=== PATIENT | female | born 1935 | race Caucasian/White ===

== ENCOUNTER 2016-12-01 12:34 | Inpatient (IN) | payer MEDICARE ==
[~2016-12-01] VITALS: Ht 160 cm; Wt 78.4 kg
[~2016-12-01 12:34] MED LIST: ACYC400T2 PO; ADV250INH IH; AMIO200T PO; APIX5TAB PO; AREDS VITAMIN PO; CHOL200047 PO; FERR325T20 PO; FLUO5DRO7 RIGHT_EYE; FURO40TA4 PO; IPRA3AMP IH; MONT10TA23 PO; NITR0.4T SL; PANT20TA2 PO; PARO20TA5 PO; POLY17PO6 PO; SIMV10TA4 PO; TIOT18CA3 INHALATION
[2016-12-01 12:57] VITALS: BP 113/67; PULSE 67; RESP 16; O2SAT 97
--- NOTE | 2016-12-01 14:02 | ED.REPORT ---
HPI-General Illness Date of Service Dec 01, 2016 ED Provider: Júnior Cheek MD Pt is an 81 y/o female anticoagulated on Eliquis w/ a hx of LLE DVT, ischemic cardiomyopathy, aortic valve replacement, CAD s/p CABG, CHF, COPD, hyperlipidemia, renal insufficiency, presenting to the ED c/o LLE swelling onset about 3 days ago. She c/o associated posterior calf pain, possible increased baseline SOB. Pt denies fever, chills, CP, injury. She had a scrape of the skin of the LLE previously with reportedly good healing. They report a history of previous LLE DVT 1 yr ago and was started on Eliquis of which the dose was halved since that time. PCP: Bal Nursing Notes Stated Complaint: WATER RETENTION/POSS CELLULITIS Chief Complaint: Extremity Trauma Nursing Notes Reviewed: Yes Allergies: Coded Allergies: Penicillins (Unverified Allergy, Intermediate, hives, 12/01/16) Scheduled Acyclovir (Acyclovir) 400 Mg Tablet 400 MG PO BID Amiodarone (Amiodarone) 200 Mg Tablet 200 MG PO DAILY Apixaban (Eliquis) 5 Mg Tablet 2.5 MG PO BID Bumetanide (Bumetanide) 1 Mg Tablet 2 MG PO BIDWM Buspirone (Buspirone) 5 Mg Tablet 5 MG PO BID Cholecalciferol (Vitamin D3) (Vitamin D3) 2,000 Unit Tablet 2,000 UNIT PO DAILY Ferrous Gluconate (Ferrous Gluconate) 324 Mg Tablet 324 MG PO BIDWM Fluorometholone (Fluorometholone) 5 Ml Drops.susp 1 DROP RIGHT_EYE BID Fluticasone/Salmeterol (Advair 250-50 Diskus) 60 Puff/Inh Disk 1 PUFF IH BID Ipratropium/Albuterol Sulfate (Iprat-Albut 0.5-3(2.5) mg/3 mL Inhalant Soln) 3 Ml Ampul.neb 3 ML IH QID Montelukast (Montelukast) 10 Mg Tablet 10 MG PO HS Pantoprazole DR (Pantoprazole DR) 20 Mg Tablet.dr 20 MG PO DAILYAC Paroxetine (Paroxetine) 20 Mg Tablet 20 MG PO HS Potassium Chloride (Potassium Chloride) 20 Meq Tab.er.prt 20 MEQ PO DAILY TAKE WITH FOOD Ropinirole (Ropinirole) 0.25 Mg Tablet 0.25-0.5 MG PO QPM Sennosides (Senna) 8.6 Mg Tablet 17.2 MG PO HS Simvastatin (Simvastatin) 10 Mg Tablet 10 MG PO HS Spironolactone (Spironolactone) 50 Mg Tablet 50 MG PO DAILY Tiotropium [place] (Spiriva) 18 Mcg Cap.w.dev 2 PUFFS IH DAILY Vit C/E/Zn/Coppr/Lutein/Zeaxan (Preservision Areds 2 Softgel) 1 Each Capsule 1 EACH PO BID Scheduled PRN Acetaminophen (Acetaminophen) 325 Mg Tablet 325 MG PO Q4H PRN PRN For Fever Carboxymethylcellulos/Glycerin (Refresh Optive Eye Drops) 15 Ml Drops 1 DROP BOTH_EYES Q2H PRN PRN DRY EYES Glycerin (Suppository) 1 Each Supp.rect 1 EACH RC DAILY PRN PRN HEMMORRHIDAL [place] Nitroglycerin SL (Nitrostat) 0.4 Mg Tab.subl 0.4 MG SL Q5MIN PRN PRN For Chest Pain Polyethylene Glycol 3350 (Miralax) 17 Gm Powd.pack 17 GM PO DAILY PRN PRN For Constipation diphenhydrAMINE HCl (Unisom Sleepmelts) 25 Mg Tab.rapdis 50 MG PO Q4H PRN PRN For Itching General Time Seen by MD: 13:56 Chief Complaint Other (extrem swelling) Hx Obtained From: Patient Arrived By: Walk-in Sudden in Onset?: No Onset Occurred: 3 days ago Symptom Duration: Since onset Location: : Leg left Quality: Painful Severity: Current: Moderate Severity: Maximum: Moderate Recent Healthcare: Previous diagnosis Similar Sx Previous: Yes Past Medical History Past Medical History Ischemic cardiomyopathy AVR (aortic valve replacement) CAD (coronary artery disease) S/P CABG x 1 Congestive heart failure - Last echo 07/23/2015 EF 23% LBBB (left bundle branch block) Leg edema Orthostatic hypotension COPD Hyperlipidemia Lower extremity length discrepancy Renal insufficiency Corneal abrasion Depression with anxiety Insomnia Osteoarthritis, s/p rt. knee replacement Osteopenia Past Surgical History Pacemaker in October Right knee replacement Reports: CABG Smoking History Former Smoker Social History Other Social History: Local resident Ambulatory Status Independent Review of Systems Full Review of Systems Constitutional: Denies: Chills, Fever Respiratory: Reports: Shortness of breath, Denies: Non-productive cough Cardiovascular: Denies: Chest pain, Palpitations GI: Denies: Abdominal pain, Nausea, Vomiting Musculoskeletal: Reports: Extremity pain, Extremity swelling Physical Exam Vital Signs Vital Signs Date Time Temp Pulse Resp B/P Pulse Ox O2 Delivery O2 Flow Rate FiO2 12/01/16 12:57 36.2 67 16 113/67 97 Room Air Initial VS: Reviewed Head / Eyes: Atraumatic, Normocephalic, PERRL ENT: Mucous membranes moist, Conjunctiva normal, No scleral icterus Neck: Supple, Full range of motion Abdomen / GI: Soft, Non-tender Neurologic: Alert, Oriented, Nonfocal Psychiatric: Mood/affect normal, Behavior normal, Normal thought content Respiratory / Chest: Atraumatic, No respiratory distress, No retractions, No stridor, No chest tenderness, No chest wall deformity, No crepitus Scattered wheezes Cardiovascular: Heart rate NL, Regular rhythm, No gallop, No rubs, Cap refill not delayed, Peripheral circulation NL Hollow systolic murmur upper right sternal border Lower Extremity / Pelvis / MS: Atraumatic, No deformity, Neurologic intact, Vascular intact, No compartment syndrome LLE up to the kene is massively swollen, warm, mildly erythematous, tender to palpation of posterior calf, foot is warm. No cords Palpable DP and PT pulses RLE normal Skin: Atraumatic, Intact Color / Condition: Positive: Rash present Interpretation & Diagnostics Lab Results Interpretation Result Diagram: 12/01/16 1515 12/01/16 1515 Test 12/01/16 15:15 White Blood Count 8.1th/mm3 (3.8-10.1) Red Blood Count 3.61mil/mm3 (3.90-5.20) Hemoglobin 10.9g/dL (12.0-15.6) Hematocrit 35.0% (35.0-46.0) Mean Corpuscular Volume 97.0fL (81-100) Mean Corpuscular Hemoglobin 30.2pg (27.0-35.0) Mean Corpuscular Hemoglobin Concent 31.1% (32.0-37.0) Red Cell Distribution Width 17.9% (12.3-15.4) Platelet Count 154bil/L (150-400) Neutrophils (%) (Auto) 80.4% (40-74) Lymphocytes (%) (Auto) 7.5% (14-46) Monocytes (%) (Auto) 10.9% (4-12) Eosinophils (%) (Auto) 1.0% (0-5) Basophils (%) (Auto) 0.1% (0-3) Sodium Level 136mEq/L (134-144) Potassium Level 4.5mEq/L (3.5-5.2) Chloride Level 95mEq/L (97-108) Carbon Dioxide Level 24mmol/L (18-29) Blood Urea Nitrogen 66mg/dL (8-27) Creatinine 2.29mg/dL (0.57-1.00) Estimat Glomerular Filtration Rate 29mL/min (>59) Glucose Level 104mg/dL (60-99) Calcium Level 9.2mg/dL (8.5-10.1) Total Bilirubin 0.6mg/dL (0.0-1.2) Aspartate Amino Transf (AST/SGOT) 23U/L (0-50) Alanine Aminotransferase (ALT/SGPT) 23U/L (0-32) Alkaline Phosphatase 102U/L (25-165) Troponin T 0.033ug/L (0.0-0.011) Total Protein 7.2g/dL (6.4-8.4) Albumin 4.6g/dL (3.4-5.0) Hold Will Top Tube Received (Received) ECG Interpretation ECG Interpretation: Atrial-sensed ventricular-paced rhythm rate 68 Time: 15:26 Interpreted by: ED physician Normal ECG Interpretation: No acute ischemic changes X-Ray Chest Interpretation Chest Xray Interpretation: IMPRESSION: Chronic CHF pattern, prior heart surgery, no definite acute disease. It is conceivable that a small degree of acute CHF exacerbation could be superimposed. Dictated by: Eduardo Galvez M.D. on 12/01/2016 at 16:54 Approved by: Eduardo Galvez M.D. on 12/01/2016 at 16:55 View: Portable, 1 view Interpretation / Wet Read by: Interpret - Radiologist US Focused Lower Ext Venous IMPRESSION: No DVT found. Elevated phasicity of the venous flow can be seen in the setting of restriction of antegrade flow through the right heart. Dictated by: Eduardo Galvez M.D. on 12/01/2016 at 15:56 Approved by: Eduardo Galvez M.D. on 12/01/2016 at 16:00 Exam Performed by: Allied health pract Exam Type: Diagnostic Exam Interpreted by: Radiologist Indication: Leg pain left, Leg swelling left, Leg erythema left Re-Eval/Medical Decision Med Decision/Clinical Course 79-year-old female with left lower extremity swelling. DVT is ruled out by imaging. 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 She does not appear to be systemically infected, does however have a increase from baseline in her serum creatinine and has an elevated troponin. We cautiously provided a saline bolus and Rocephin 2 g IV. She will be admitted to the hospitalist service with nephrology consulting. Consultation : Referral / Consult Name: Soumya Baker Consulted With: Nephrology Optical Instrument Assembler: Will see patient Counseled Regarding: Diagnosis, Lab results, Need for admission Discharge & Departure Primary Impression: Cellulitis of left lower leg Additional Impression: Acute kidney injury Disposition: ADMITTED TO HOSPITAL Discharge Condition All VS Reviewed: Yes Condition: Stable Referrals: Ronny Contreras MD (PCP) [place] Attestation Portions of this note were transcribed by Remington Resendiz. I, Dr. Cheek personally performed the history, physical exam and medical decision-making; I reviewed and confirmed the accuracy of the information in the transcribed note. Signed by Ahsan Steele, 12/01/16 - 0499 copies to: Ronny Contreras MD, Donald L MD Dec 01, 2016 14:02 REMINGTON RESENDIZ Dec 01, 2016 15:01
[2016-12-01] MEDS ORDERED: HYDROcodone-APAP 5-325 mg Tablet PO ONE (15:05)
[2016-12-01 15:27] LABS: BASOPHILS % (AUTO) 0.1 % (0-3); MONOCYTES % (AUTO) 10.9 % (4-12); Mean Corpuscular Hemoglobin 30.2 pg (27.0-35.0); NEUTROPHILS % (AUTO) 80.4 % (40-74); Platelet Count 154 bil/L (150-400)
[2016-12-01 15:50] LABS: TROPONIN T 0.033 ug/L (0.0-0.011)
--- NOTE | 2016-12-01 16:01 | DRSVH ---
PROCEDURE: US VEINOUS LEG DUPLEX UNILATERAL, LEFT INDICATIONS: L leg swelling TECHNIQUE: Real-time imaging, as well as color and pulse Doppler interrogation, were performed of the lower extr emity deep veins from the inguinal ligament to the popliteal fossa. COMPARISON: None. FINDINGS: The deep veins are normally compressible, and free of intraluminal thrombus. Color and pu lse Doppler demonstrate phasic intraluminal flow, with phasicity that is greater than often is seen, in a pattern that may reflect some degree of right-sided cardiac insufficiency. There is normal augm entation response to distal compression maneuver. IMPRESSION: No DVT found. Elevated phasicity of the venous flow can be seen in the setting of restri ction of antegrade flow through the right heart. Dictated by: Eduardo Galvez M.D. on 12/01/2016 at 15:56 Approved by: Eduardo Galvez M.D. on 12/01/2016 at 16:00
[2016-12-01] MEDS ORDERED: POTA20LI2 PO (16:57)
[2016-12-01] MEDS ORDERED: BUME1TAB4 PO (16:57)
[2016-12-01] MEDS ORDERED: POLY17PO6 PO (16:57)
[2016-12-01] MEDS ORDERED: CARB15DR2 BOTH_EYES (16:57)
[2016-12-01] MEDS ORDERED: DIPH-36 PO (16:57)
[2016-12-01] MEDS ORDERED: GLYC1SUP77 RC (16:57)
[2016-12-01] MEDS ORDERED: AMIO200T PO (16:57)
[2016-12-01] MEDS ORDERED: BUSP5TAB3 PO (16:57)
[2016-12-01] MEDS ORDERED: FERR324T5 PO (16:57)
--- NOTE | 2016-12-01 16:57 | DRSVH ---
PROCEDURE: X-RAY CHEST ONE VIEW, PORTABLE ([id number]) INDICATIONS: dyspnea TECHNIQUE: One view of the chest was acquired. COMPARISON: [facility], CR, XR CHEST 2VW, 07/29/2016, 10:31. [facility], CR , XR CHEST 1VW (PORTABLE), 07/26/2016, 16:43. FINDINGS: Surgical changes and devices: Pacemaking device and leads, sternotomy wires, presumed prior CABG, all appear stable over time. . Lungs and pleura: No pleural effusions or pneumothorax. Lungs are abnormal, with chronic interstiti al prominence and no definite CHF. Mediastinum: Mediastinal contours appear normal. 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 Bones and chest wall: No suspicious bony lesions. Overlying soft tissues appear unremarkable. IMPRESSION: Chronic CHF pattern, prior heart surgery, no definite acute disease. It is conceivable t hat a small degree of acute CHF exacerbation could be superimposed. Dictated by: Eduardo Galvez M.D. on 12/01/2016 at 16:54 Approved by: Eduardo Galvez M.D. on 12/01/2016 at 16:55
[2016-12-01] MEDS ORDERED: SPIR50TA2 PO (17:02)
[2016-12-01] MEDS ORDERED: ROPI0.252 PO (17:02)
[2016-12-01] MEDS ORDERED: TIOT18CA3 IH (17:02)
[2016-12-01] MEDS ORDERED: SENN-133 PO (17:02)
[2016-12-01] MEDS ORDERED: TRIA15OI9 TOP (17:02)
[2016-12-01] MEDS ORDERED: KEN25CR EXT (17:02)
[2016-12-01] MEDS ORDERED: ACET325T51 PO (17:02)
[2016-12-01] MEDS ORDERED: CHOL200025 PO (17:02)
[2016-12-01] MEDS ORDERED: VIT1CAPS46 PO (17:14)
[2016-12-01] MEDS ORDERED: POTA20TA16 PO (17:15)
[2016-12-01] MEDS ORDERED: 0.9% Sodium Chloride 500 ML IV ONE (17:45)
[2016-12-01] MEDS ORDERED: cefTRIAXone Inj 2,000 MG in Dextrose 5% Minibag Plus 50 ML IV ONE (17:45)
--- NOTE | 2016-12-01 18:27 | PCM.HPMED ---
Subjective Date of Service Dec 01, 2016 Primary Provider: Admitting Physician: Primary Care Physician: Ronny Contreras MD Attending Physician: Chief Complaint: Right extremity pain and swelling History of Present Illness: Pt is an 81 y/o female anticoagulated on Eliquis w/ a hx of LLE DVT, ischemic cardiomyopathy, aortic valve replacement, CAD s/p CABG, CHF, COPD, hyperlipidemia, renal insufficiency, presenting to the ED c/o LLE swelling onset about 3 days ago. Patient also complaining of calf pain . No chest pain, no shortness of breath . She has a history of previous lower extremity DVT and chronically on Eliquis . Patient is found to have extensive lower extremity cellulitis from ankle to below the knee. Ultrasound showed no DVT. Review of Systems: Review of systems is pertinent in the lower extremity pain and swelling, otherwise a comprehensive review 10 points is negative Allergies Coded Allergies: Penicillins (Unverified Allergy, Intermediate, hives, 12/01/16) Home Medications Scheduled Acyclovir (Acyclovir) 400 Mg Tablet 400 MG PO BID Amiodarone (Amiodarone) 200 Mg Tablet 200 MG PO DAILY Apixaban (Eliquis) 5 Mg Tablet 2.5 MG PO BID Bumetanide (Bumetanide) 1 Mg Tablet 2 MG PO BIDWM Buspirone (Buspirone) 5 Mg Tablet 5 MG PO BID Cholecalciferol (Vitamin D3) (Vitamin D3) 2,000 Unit Tablet 2,000 UNIT PO DAILY Ferrous Gluconate (Ferrous Gluconate) 324 Mg Tablet 324 MG PO BIDWM Fluorometholone (Fluorometholone) 5 Ml Drops.susp 1 DROP RIGHT_EYE BID Fluticasone/Salmeterol (Advair 250-50 Diskus) 60 Puff/Inh Disk 1 PUFF IH BID Ipratropium/Albuterol Sulfate (Iprat-Albut 0.5-3(2.5) mg/3 mL Inhalant Soln) 3 Ml Ampul.neb 3 ML IH QID Montelukast (Montelukast) 10 Mg Tablet 10 MG PO HS Pantoprazole DR (Pantoprazole DR) 20 Mg Tablet.dr 20 MG PO DAILYAC Paroxetine (Paroxetine) 20 Mg Tablet 20 MG PO HS Potassium Chloride (Potassium Chloride) 20 Meq Tab.er.prt 20 MEQ PO DAILY TAKE WITH FOOD Ropinirole (Ropinirole) 0.25 Mg Tablet 0.25-0.5 MG PO QPM Sennosides (Senna) 8.6 Mg Tablet 17.2 MG PO HS Simvastatin (Simvastatin) 10 Mg Tablet 10 MG PO HS Spironolactone (Spironolactone) 50 Mg Tablet 50 MG PO DAILY Tiotropium [place] (Spiriva) 18 Mcg Cap.w.dev 2 PUFFS IH DAILY Vit C/E/Zn/Coppr/Lutein/Zeaxan (Preservision Areds 2 Softgel) 1 Each Capsule 1 EACH PO BID Scheduled PRN Acetaminophen (Acetaminophen) 325 Mg Tablet 325 MG PO Q4H PRN PRN For Fever Carboxymethylcellulos/Glycerin (Refresh Optive Eye Drops) 15 Ml Drops 1 DROP BOTH_EYES Q2H PRN PRN DRY EYES Glycerin (Suppository) 1 Each Supp.rect 1 EACH RC DAILY PRN PRN HEMMORRHIDAL TX Nitroglycerin SL (Nitrostat) 0.4 Mg Tab.subl 0.4 MG SL Q5MIN PRN PRN For Chest Pain Polyethylene Glycol 3350 (Miralax) 17 Gm Powd.pack 17 GM PO DAILY PRN PRN For Constipation diphenhydrAMINE HCl (Unisom Sleepmelts) 25 Mg Tab.rapdis 50 MG PO Q4H PRN PRN For Itching PMH Ischemic cardiomyopathy AVR (aortic valve replacement) CAD (coronary artery disease) S/P CABG x 1 Congestive heart failure - Last echo 07/23/2015 EF 23% LBBB (left bundle branch block) Leg edema Orthostatic hypotension COPD Hyperlipidemia Lower extremity length discrepancy Renal insufficiency Corneal abrasion Depression with anxiety Insomnia Osteoarthritis, s/p rt. knee replacement Osteopenia Surgical History Pacemaker in October Right knee replacement Reports: CABG Family History Family history reviewed and is non contributory to the present illness Social History Hx Alcohol Use: No Hx Substance Use: No Smoking Status: Former Smoker Living Arrangement: with Family Exam Vital Signs Vital Sign - Last Date Time Temp Pulse Resp B/P Pulse Ox O2 Delivery O2 Flow Rate FiO2 12/01/16 12:57 36.2 67 16 113/67 97 Room Air Exam General/constitutional: Elderly female but comfortably, with yellowish, not in distress HEENT: Atraumatic, Normocephalic, PERRL, sclerae anicteric Mouth: Moist oropharyngeal mucosa Neck: Supple, Full range of motion. Trachea is midline, no JVD Chest: No chest tenderness, No chest wall deformities Lungs: Clear bilaterally to auscultation, no wheezing Cardiovascular: Heart rate NL, Regular rhythm, No gallop, No rubs, Cap refill not delayed, Peripheral circulation Abdomen / GI: Soft, Non-tender, bowel sounds audible quadrant. No palpable mass Lower Extremity: Right lower extremity with extending erythema from ankle to below the knee. Warmth and tender on palpation Neurologic: Alert, Oriented, grossly intact Psychiatric: Mood/affect normal, Behavior normal, Normal thought content Lab and Diagnostics Result Diagram: 12/01/16 1515 12/01/16 1515 X-Rays, CTs and MRIs Checks x-ray reviewed : Chronic CHF pattern, prior heart surgery, no definite acute disease. It is conceivable that a small degree of acute CHF exacerbation could be superimposed Extremity ultrasound report reviewed : No DVT Assessment & Plan 1. LE Cellulitis 2. Acute on chronic renal failure Chronic medical problems Ischemic cardiomyopathy AVR (aortic valve replacement) CAD (coronary artery disease) S/P CABG x 1 Congestive heart failure - Last echo 07/23/2015 EF 23% LBBB (left bundle branch block) Leg edema Orthostatic hypotension COPD Hyperlipidemia Lower extremity length discrepancy Renal insufficiency Corneal abrasion Depression with anxiety Insomnia Osteoarthritis, s/p rt. knee replacement Osteopenia Admit for cellulitis and acute renal failure . Start clindamycin 600 mg IV Q6H . US shows no DVT Hold Spironolactone and bumetanide . Monitor renal function and electrolytes Consult nephrology . Home medications reviewed and reconciled . BMP in am On Eliquis for h/o DVT. Resuscitation Status: CPR: Attempt Resuscitation Time spent 75 minutes Shun Leggett MD Dec 01, 2016 18:27
[2016-12-01] MEDS ORDERED: Polyethylene Glycol (PEG) 17 Gm Powder PO PRN (18:40)
[2016-12-01 18:50] VITALS: BP 114/70; PULSE 69; RESP 16; O2SAT 96
--- NOTE | 2016-12-01 19:03 | NUR ---
Admission Pt from ED in w/c at 1645, able to transfer self to bed. Report from Lisa Schaffer RN. Pt's left knee reddened and edematous, borders not marked. Pt has no c/o pain at this time, medication given in ED. IV antibiotics and fluids connected to left AC IV immediately. ZORA RAMSEY, A&O x 3. Pt oriented to room and notified she will get a new RN shortly because of shift change.
[2016-12-01 20:26] VITALS: PULSE 64; RESP 16; O2SAT 96
[2016-12-01] MEDS: Albuterol-Ipratropium 3 mL Inhalation Solution NEB SCH (20:26)
[2016-12-01] MEDS: [UNRECOGNIZED DRUG - OTHER] RIGHT_EYE SCH (20:30)
[2016-12-01] MEDS: Potassium Chloride 20 mEq SR Tablet PO SCH (22:41)
[2016-12-01] MEDS: PARoxetine 20 mg Tablet PO SCH (22:41)
[2016-12-01] MEDS: Clindamycin Inj 600 MG in IV Premix 1 EACH IV SCH (22:42)
[2016-12-01] MEDS: Acyclovir 400 mg Tablet PO SCH (22:43)
[2016-12-01] MEDS: Fluticasone-Salmererol 250-50 Inhaler INHALATION SCH (22:44)
[2016-12-02] VITALS (9 sets, daily range): BP systolic 97–126; BP diastolic 58–68; PULSE 62–71; RESP 16–20; O2SAT 93–99
[2016-12-02] MEDS: Clindamycin Inj 600 MG in IV Premix 1 EACH IV SCH ×3 (04:03→20:07)
--- NOTE | 2016-12-02 05:27 | NUR ---
activity Pt remained in room for the shift, up to bathroom with SBA. Pt is pleasant, and cooperative, alert and oriented, no complaints of pain or discomfort. Uses call light appropriately, with continue to monitor.
[2016-12-02 07:23] LABS: BASOPHILS % (AUTO) 0.2 % (0-3); EOSINOPHILS % (AUTO) 1.4 % (0-5); MONOCYTES % (AUTO) 13.4 % (4-12); Mean Corpuscular Volume 97.6 fL (81-100); NEUTROPHILS % (AUTO) 78.7 % (40-74); Platelet Count 138 bil/L (150-400)
[2016-12-02] MEDS: Albuterol-Ipratropium 3 mL Inhalation Solution NEB SCH ×4 (08:28→19:59)
[2016-12-02] MEDS: [UNRECOGNIZED DRUG - OTHER] RIGHT_EYE SCH ×2 (08:30→20:30)
[2016-12-02] MEDS: Fluticasone-Salmererol 250-50 Inhaler INHALATION SCH ×2 (09:04→20:10)
[2016-12-02] MEDS: Pantoprazole 20 mg ER24 Tablet PO SCH (09:04)
[2016-12-02] MEDS: Acyclovir 400 mg Tablet PO SCH ×2 (09:04→20:09)
[2016-12-02] MEDS: Potassium Chloride 20 mEq SR Tablet PO SCH (09:05)
--- NOTE | 2016-12-02 12:27 | CONS ---
[address] [address] CONSULTATION REPORT PATIENT: YVETTE WATKINS : 1935 MR#: [id number] ADMIT: 12/01/2016 JOB ID: [id number] DATE OF SERVICE: 12/02/2016 NEPHROLOGY CONSULTATION: REQUESTING PHYSICIAN: Dr. Ronny Contreras REASON FOR CONSULTATION: Management of abnormal kidney function. COMPLAINT: Left lower extremity swelling and redness. HISTORY OF PRESENT ILLNESS: This is a very pleasant 81-year-old lady who is well known to the renal service, who came to the hospital with a complaint of left lower extremity swelling and tenderness. The patient does have history of chronic kidney disease stage 4. Her baseline serum creatinines have ranged between 1.8-2.0. The patient was recently seen by me approximately three weeks ago. We switched Lasix to Bumex 2 mg twice a day given history of unresponsive to long-term use of Lasix. The patient reported that she responded well with the new diuretic. She has lost weight and her lower extremity swelling has gone down. However, over the past four days her left leg became swollen, red, and very painful. The patient came to the hospital yesterday for further investigation. She was found to have cellulitis and started on IV antibiotics, IV ceftriaxone. DVT was ruled out. The patient has no fever, no chills. No chest pain, no shortness of breath. No diarrhea, no nausea or vomiting. Her initial BUN and creatinine were 66 and 2.29, respectively. Her BUN and creatinine today came down to 57 and 2.16. PAST MEDICAL HISTORY: 1. Chronic kidney disease stage 4. 2. Coronary artery disease status post CABG. 3. COPD. 4. CHF. 5. Dyslipidemia. 6. Aortic valve replacement. 7. Ischemic cardiomyopathy. 8. Lower extremity deep venous thrombosis. 9. Osteoarthritis, status post right knee replacement. 10. Depression. 11. Aortic stenosis status post aortic valve replacement. 12. Paroxysmal atrial fibrillation. PAST SURGICAL HISTORY: 1. Pacemaker placement. 2. Right knee replacement. 3. Status post CABG. FAMILY HISTORY: Noncontributory. SOCIAL HISTORY: She is a former smoker. ALLERGIES: PENICILLIN. MEDICATIONS: Reviewed. REVIEW OF SYSTEMS: Constitutional: No fever, no chills. HEENT: No headaches. No blurred vision. Cardiovascular: No chest pain or shortness of breath. Pulmonary: No cough. No hemoptysis. GI: No nausea or vomiting. : No dysuria. No hematuria. Skin and musculoskeletal: As per HPI. Hematology: No active bleeding. No bruises. Neuro: No neurological deficit. PHYSICAL EXAMINATION: Vitals: Temperature 36.1, pulse 71, respiratory 16, blood pressure 126/67, O2 sat 96% on room air. General appearance: Awake, alert, oriented x3. No acute distress. HEENT: No pallor. No icteric sclerae. Atraumatic. Moist mucous membranes. PERRLA. Neck: Positive for JVD. No lymphadenopathy. No thyroid enlargement. Heart: Regular rhythm. Normal S1, S2. Systolic murmur noted. Lungs: Decreased breath sound at bases. No wheezing. No rhonchi. Abdomen: Soft, obese. Active bowel sounds. No hepatosplenomegaly. Extremities: No edema on the right lower extremity. Positive 1+ pitting edema. The area of the redness on the left lower extremity is tender to touch, warm. IMAGING: Chest x-ray showed chronic CHF pattern, prior heart surgery. No definite acute disease. Lower extremity Doppler of the left leg showed no acute evidence of a DVT. ASSESSMENT: 1. Skin and soft tissue infection of the left lower extremity. 2. Acute kidney injury on chronic kidney disease secondary to over-diuresis and ongoing infection, acute tubular necrosis. 3. 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 4. Ischemic cardiomyopathy. 5. Coronary artery disease status post coronary artery bypass grafting. 6. Severe aortic stenosis status post aortic valve replacement. 7. Paroxysmal atrial fibrillation. 8. COPD. PLAN: 1. I agree with the primary team to continue on the current IV antibiotics. I will hold diuretics for now. I will reassess her volume status on a daily basis. We will resume diuretics once she is more euvolemic. 2. Avoid nephrotoxins. 3. Repeat CBC and renal panel in the morning. 4. Check anemia workup. 5. Repeat the UA. Thank you for the consultation. We will monitor along with you. CHANEL
[2016-12-02 13:04] LABS: Magnesium 2.6 mg/dL (1.6-2.6); Phosphorus 4.4 mg/dL (2.5-4.9)
--- NOTE | 2016-12-02 13:43 | PCM.PNMED ---
Subjective Date of Service Dec 02, 2016 Subjective Left leg swelling, pain and redness much improved. Afebrile. Exam Vital Signs Vital Sign - Last Date Time Temp Pulse Resp B/P Pulse Ox O2 Delivery O2 Flow Rate FiO2 12/02/16 13:35 36.6 65 16 97/61 93 Room Air Intake and Output 12/01/16 12/01/16 12/02/16 Cumulative From/Thru 15:00 23:00 07:00 12/01/16 12:57 - 12/02/16 06:30 Intake Total 1192 ml 1192 ml Balance 1192 ml 1192 ml IV Total 1192 ml 1192 ml Exam General/constitutional: Elderly female but comfortably, with yellowish, not in distress HEENT: Atraumatic, Normocephalic, PERRL, sclerae anicteric Mouth: Moist oropharyngeal mucosa Neck: Supple, Full range of motion. Trachea is midline, no JVD Chest: No chest tenderness, No chest wall deformities Lungs: Clear bilaterally to auscultation, no wheezing Cardiovascular: Heart rate NL, Regular rhythm, No gallop, No rubs, Cap refill not delayed, Peripheral circulation Abdomen / GI: Soft, Non-tender, bowel sounds audible quadrant. No palpable mass Lower Extremity: Right lower extremity with extending erythema from ankle to below the knee. Warmth and tender on palpation . Much improved today. Area of erythema much less from marked order Neurologic: Alert, Oriented, grossly intact Psychiatric: Mood/affect normal, Behavior normal, Normal thought content IVs and Medications Medications Reviewed: Medications were reviewed in detail Lab and Diagnostics Result Diagram: 12/02/16 0650 12/02/16 0650 X-Rays, CTs and MRIs Checks x-ray reviewed : Chronic CHF pattern, prior heart surgery, no definite acute disease. It is conceivable that a small degree of acute CHF exacerbation could be superimposed PROCEDURE: US VEINOUS LEG DUPLEX UNILATERAL, LEFT INDICATIONS: L leg swelling TECHNIQUE: Real-time imaging, as well as color and pulse Doppler interrogation, were performed of the lower extremity deep veins from the inguinal ligament to the popliteal fossa. COMPARISON: None. FINDINGS: The deep veins are normally compressible, and free of intraluminal thrombus. Color and pulse Doppler demonstrate phasic intraluminal flow, with phasicity that is greater than often is seen, in a pattern that may reflect some degree of right-sided cardiac insufficiency. There is normal augmentation response to distal compression maneuver. IMPRESSION: No DVT found. Elevated phasicity of the venous flow can be seen in the setting of restriction of antegrade flow through the right heart. Dictated by: Eduardo Galvez M.D. on 12/01/2016 at 15:56 Assessment & Plan #. LLE Cellulitis ,acute,poa -Continue clindamycin 600 mg IV Q6H . -US shows no DVT, continue Eliquis for h/o DVT #. Acute on chronic renal failure -Hold Spironolactone and bumetanide . Monitor renal function and electrolytes -Consulted nephrology #Ischemic cardiomyopathy/Congestive heart failure - Last echo 07/23/2015 EF 23% -Diuresis on hold due to KAYLA -Continue amiodarone Chronic medical problems #History of AVR (aortic valve replacement) #CAD (coronary artery disease) S/P CABG x 1 #COPD -Continue Advair, DuoNeb #Hyperlipidemia -c/w simvastatin #Depression with anxiety #Insomnia disposition: Possible discharge tomorrow on oral antibiotics if continues to improve. Resuscitation Status: CPR: Attempt Resuscitation Malik Pruitt MD Dec 02, 2016 13:42 Admit for cellulitis and acute renal failure . Start clindamycin 600 mg IV Q6H . US shows no DVT Hold Spironolactone and bumetanide . Monitor renal function and electrolytes Consult nephrology . Home medications reviewed and reconciled . BMP in am On Eliquis for h/o DVT. Resuscitation Status: CPR: Attempt Resuscitation Malik Pruitt MD Dec 02, 2016 13:42
[2016-12-02] MEDS ORDERED: diphenhydrAMINE 25 mg Capsule PO PRN (14:00)
--- NOTE | 2016-12-02 15:58 | NUR ---
Social Work-initial assessment: Data:See initial assessment. Pt is a 81 y/o female who was admitted on 12/01/16 for left leg cellulitis per H&P. Pt's insurance is [employer] and PCP is Ronny Contreras MD.. EMR Reviewed. SW spoke with pt at bedside to discuss discharge planning, SW role explained. Pt is alert and oriented x3. Pt resides at [facility] where she remains independent with ADLS. Pt has had [facility] and has been to [facility]. 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 Per RN notes, pt has been up independent in the room. Pt's daughter to provide transport home. Pt denies any needs for HH and states she has enough help at home.. SW provided phone number and plan. SW will continue to follow. Assessment:Pt who is independent at baseline. Plan:Pt to discharge home when medically stable. No anticipated discharge needs. SW will continue to follow if needs arise. PHIL Berrios Addendum: 12/02/16 at 1601 by BILL ALCARAZ Amended: Links added.
[2016-12-02 16:57] LABS: APPEARANCE,URINE HAZY (CLEAR,HAZY); COLOR,URINE YELLOW (YELLOW); OCCULT BLOOD,URINE NEGATIVE (NEGATIVE); PH,URINE 5.5 (5.0-8.0); UROBILINOGEN,URINE NORMAL (NORMAL); YEAST,URINE FEW (NONE SEEN)
[2016-12-02] MEDS: PARoxetine 20 mg Tablet PO SCH (20:09)
[2016-12-02] MEDS: BusPIRone 15 mg Dividose Tablet PO SCH (20:10)
[2016-12-02] MEDS: Artificial Tears 15 mL Ophthalmic Solution BOTH_EYES PRN (20:10)
[2016-12-02] MEDS: [UNRECOGNIZED DRUG - OTHER] PO SCH (20:30)
[2016-12-03] VITALS (8 sets, daily range): BP systolic 100–110; BP diastolic 60–64; PULSE 66–93; RESP 16–24; O2SAT 94–99
--- NOTE | 2016-12-03 03:41 | NUR ---
Activity Patient comfortable through out evening, denies CP, abdominal discomfort, and general pain. Main concern has been whether leg will return to original size and color. Will continue to monitor for pain.
[2016-12-03] MEDS: Clindamycin Inj 600 MG in IV Premix 1 EACH IV SCH ×3 (04:29→21:18)
[2016-12-03 07:20] LABS: BASOPHILS % (AUTO) 0.1 % (0-3); EOSINOPHILS % (AUTO) 0.8 % (0-5); MONOCYTES % (AUTO) 14.3 % (4-12); Mean Corpuscular Hemoglobin 31.1 pg (27.0-35.0); Mean Corpuscular Volume 97.8 fL (81-100); NEUTROPHILS % (AUTO) 78.1 % (40-74); Platelet Count 130 bil/L (150-400)
[2016-12-03] MEDS: Albuterol-Ipratropium 3 mL Inhalation Solution NEB SCH ×4 (07:38→20:08)
[2016-12-03 08:24] LABS: Magnesium 2.6 mg/dL (1.6-2.6); Phosphorus 4.2 mg/dL (2.5-4.9); Unsaturated Iron Binding 235.1 ug/dL
[2016-12-03] MEDS: [UNRECOGNIZED DRUG - OTHER] RIGHT_EYE SCH ×2 (08:30→20:30)
[2016-12-03] MEDS: [UNRECOGNIZED DRUG - OTHER] PO SCH ×2 (08:30→20:30)
[2016-12-03] MEDS: Pantoprazole 20 mg ER24 Tablet PO SCH (10:27)
[2016-12-03] MEDS: Fluticasone-Salmererol 250-50 Inhaler INHALATION SCH ×2 (10:28→21:18)
[2016-12-03] MEDS: BusPIRone 15 mg Dividose Tablet PO SCH ×2 (10:28→21:19)
[2016-12-03] MEDS: Potassium Chloride 20 mEq SR Tablet PO SCH (10:29)
[2016-12-03] MEDS: Acyclovir 400 mg Tablet PO SCH ×2 (10:29→21:20)
--- NOTE | 2016-12-03 11:43 | PCM.PNNEPH ---
Subjective Date of Service Dec 03, 2016 Subjective There was no acute issues overnight. The swelling of the left lower extremity has improved. Patient has no fever no chills overnight. Exam Vital Signs Vital Sign - Last Date Time Temp Pulse Resp B/P Pulse Ox O2 Delivery O2 Flow Rate FiO2 12/03/16 07:39 66 18 98 Room Air 12/03/16 04:36 36.6 110/64 2.00 Intake and Output 12/02/16 12/02/16 12/03/16 Cumulative From/Thru 15:00 23:00 07:00 12/01/16 12:57 - 12/03/16 05:59 Intake Total 600 ml 1318 ml 665 ml 3775 ml Output Total 425 ml 500 ml 450 ml 1375 ml Balance 175 ml 818 ml 215 ml 2400 ml Intake Oral 600 ml 1318 ml 400 ml 2318 ml IV Total 265 ml 1457 ml Output Urine Total 425 ml 500 ml 450 ml 1375 ml # Voids 3 2 5 # Bowel Movements 0 1 1 2 Exam General appearance: Awake, alert, oriented x3. No acute distress. HEENT: No pallor. No icteric sclerae. Atraumatic. Moist mucous membranes. PERRLA. Neck: Positive for JVD. No lymphadenopathy. No thyroid enlargement. Heart: Regular rhythm. Normal S1, S2. Systolic murmur noted. Lungs: Decreased breath sound at bases. No wheezing. No rhonchi. Abdomen: Soft, obese. Active bowel sounds. No hepatosplenomegaly. Extremities: No edema on the right lower extremity. Positive 1+ pitting edema. The area of the redness on the left lower extremity is tender to touch, warmth. Lab and Diagnostics Result Diagram: 12/03/16 0653 12/03/16 0653 X-Rays, CTs and MRIs Checks x-ray reviewed : Chronic CHF pattern, prior heart surgery, no definite acute disease. It is conceivable that a small degree of acute CHF exacerbation could be superimposed PROCEDURE: US VEINOUS LEG DUPLEX UNILATERAL, LEFT INDICATIONS: L leg swelling TECHNIQUE: Real-time imaging, as well as color and pulse Doppler interrogation, were performed of the lower extremity deep veins from the inguinal ligament to the popliteal fossa. COMPARISON: None. FINDINGS: The deep veins are normally compressible, and free of intraluminal thrombus. Color and pulse Doppler demonstrate phasic intraluminal flow, with phasicity that is greater than often is seen, in a pattern that may reflect some degree of right-sided cardiac insufficiency. There is normal augmentation response to distal compression maneuver. IMPRESSION: No DVT found. Elevated phasicity of the venous flow can be seen in the setting of restriction of antegrade flow through the right heart. Dictated by: Eduardo Galvez M.D. on 12/01/2016 at 15:56 Plan Impression 1. Skin and soft tissue infection of the left lower extremity. 2. Acute kidney injury on chronic kidney disease secondary to over-diuresis and ongoing infection, acute tubular necrosis. 3. 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 4. Ischemic cardiomyopathy. 5. Coronary artery disease status post coronary artery bypass grafting. 6. Severe aortic stenosis status post aortic valve replacement. 7. Paroxysmal atrial fibrillation. 8. COPD. Plan Resume Bumex 2 mg once a day. Continue IV antibiotics. Avoid nephrotoxins. Fabio Ortega MD Dec 03, 2016 11:43
--- NOTE | 2016-12-03 13:08 | NUR ---
Social Work- Readiness for Discharge Data: EMR reviewed. Pt is on day 2 of hospitalization for left leg cellulitis per H&P. Pt is not medically stable, anticipate discharge in 1-2 days. Pt continues IV abx. Pt to discharge to [facility] where she remains independent at base. No anticipated discharge needs. SW will continue to follow. Assessment: Pt who is independent at base. Plan: Pt to discharge home. No anticipated discharge needs. SW will continue to follow. PHIL Peter
[2016-12-03] MEDS ORDERED: Albuterol-Ipratropium 3 mL Inhalation Solution NEB PRN (13:50)
[2016-12-03] MEDS ORDERED: Albuterol 2.5 mg/3 mL Inhalation Solution NEB ONE (13:51)
--- NOTE | 2016-12-03 15:02 | PCM.DIMED ---
Discharge Instructions Date of Service Dec 03, 2016 Dates of Hospitalization Dec 01, 2016 at 18:16 Discharge Diagnosis Discharge Diagnosis Acute cellulitis, left lower extremity Acute on chronic renal failure Ischemic cardiomyopathy leading to acute systolic CHF exacerbation with last echo in July 2015 showing EF of 23% History of aortic valve replacement CAD status post CABG 1 COPD Hyperlipidemia Depression with anxiety Insomnia Medication Instructions Patient will continue clindamycin orally for total of 7 days finishing on 12/08 Test Results No evidence of DVT on ultrasound Chest x-ray 12/03 IMPRESSION: Chronic CHF pattern, prior heart surgery, no definite acute disease. It is conceivable that a small degree of acute CHF exacerbation could be superimposed. Diet Heart Healthy Activity No restrictions Call your provider Fever or Chills, Shortness of breath, Chest pain, Vomitting, Excessive diarrhea Patient Instructions You are being treated for acute cellulitis and this will be treated with 1 week of antibiotics. Please take his antibiotics as instructed and this may be taken with food. I am happy to see that you are clinically improving with your skin infection. Please call your physician if having any increasing diarrhea, fever, chills or trouble breathing. He was seen by the kidney doctor as well during her hospitalization as it appears her kidneys were not functioning optimally due to a significant amount of fluid loss from the medications you were given and that was taken at home Follow-up Provider: Ronny Contreras MD Follow-up with PCP in: 1 week Shun Diaz DO Dec 03, 2016 15:02
[2016-12-03] MEDS ORDERED: CLIN-78 PO (15:05)
--- NOTE | 2016-12-03 15:12 | PCM.DC.MED ---
Discharge Summary Date of Service Dec 03, 2016 Dates of Hospitalization Date of Hospital Admission Dec 01, 2016 at 18:16 Date of Discharge: Dec 03, 2016 Providers: Admitting Physician: Laurel Leggett MD Primary Care Physician: Ronny Contreras MD Attending Physician: Laurel Leggett MD Diagnosis at Time of Discharge Diagnosis at Time of Discharge Acute cellulitis, left lower extremity Acute on chronic renal failure Ischemic cardiomyopathy leading to acute systolic CHF exacerbation with last echo in July 2015 showing EF of 23% History of aortic valve replacement CAD status post CABG 1 COPD Hyperlipidemia Depression with anxiety Insomnia Consultations Nephrology Procedures XRay, CTs & MRIs Checks x-ray reviewed : Chronic CHF pattern, prior heart surgery, no definite acute disease. It is conceivable that a small degree of acute CHF exacerbation could be superimposed PROCEDURE: US VEINOUS LEG DUPLEX UNILATERAL, LEFT INDICATIONS: L leg swelling TECHNIQUE: Real-time imaging, as well as color and pulse Doppler interrogation, were performed of the lower extremity deep veins from the inguinal ligament to the popliteal fossa. COMPARISON: None. FINDINGS: The deep veins are normally compressible, and free of intraluminal thrombus. Color and pulse Doppler demonstrate phasic intraluminal flow, with phasicity that is greater than often is seen, in a pattern that may reflect some degree of right-sided cardiac insufficiency. There is normal augmentation response to distal compression maneuver. IMPRESSION: No DVT found. Elevated phasicity of the venous flow can be seen in the setting of restriction of antegrade flow through the right heart. Dictated by: Eduardo Galvez M.D. on 12/01/2016 at 15:56 Other Diagnostics IMPRESSION: No DVT found. Elevated phasicity of the venous flow can be seen in the setting of restriction of antegrade flow through the right heart. Dictated by: Eduardo Galvez M.D. on 12/01/2016 at 15:56 Brief History History of present illness as per admitting physician: Pt is an 81 y/o female anticoagulated on Eliquis w/ a hx of LLE DVT, ischemic cardiomyopathy, aortic valve replacement, CAD s/p CABG, CHF, COPD, hyperlipidemia, renal insufficiency, presenting to the ED c/o LLE swelling onset about 3 days ago. Patient also complaining of calf pain . No chest pain, no shortness of breath . She has a history of previous lower extremity DVT and chronically on Eliquis . Patient is found to have extensive lower extremity cellulitis from ankle to below the knee. Ultrasound showed no DVT. Hospital Course #. LLE Cellulitis ,acute,poa -Continue clindamycin 600 mg IV Q6H . This antibiotic, clindamycin will be continued for total of 7 days and was transitioned to oral regimen at discharge , 300 mg every 6. -US shows no DVT, continue Eliquis for h/o DVT -At the time of discharge patient clinically improved with residual moderate left lower extremity edema but improvement in cellulitis pain and erythema. Patient was afebrile hemodynamically stable with adequate oxygenation. #. Acute on chronic renal failure -During hospitalization we held patient's Spironolactone and bumetanide given acute kidney injury -Consulted nephrology, pressure recommendations and will continue with 2 mg of Bumex given improvement in kidney function at the time of discharge #Ischemic cardiomyopathy/Congestive heart failure - Last echo 07/23/2015 EF 23% -Diuresis resumed at discharge as above -Continue amiodarone #COPD -Continue Advair, DuoNeb at discharge, patient did require intermittent breathing treatments during her hospitalization Chronic medical problems #History of AVR (aortic valve replacement) #CAD (coronary artery disease) S/P CABG x 1 #Hyperlipidemia -c/w simvastatin #Depression with anxiety #Insomnia disposition: Discharged back to [facility] with follow-up closely in one week with Dr. CONTRERAS, patient's PCP Exam Vital Signs (Last) Date Time Temp Pulse Resp B/P Pulse Ox O2 Delivery O2 Flow Rate FiO2 12/03/16 14:43 36.7 68 16 100/60 94 Room Air 12/03/16 04:36 2.00 Exam General/constitutional: Elderly female, no acute distress HEENT: Atraumatic, Normocephalic, PERRL, sclerae anicteric Mouth: Moist oropharyngeal mucosa Neck: Supple, Full range of motion. Trachea is midline, no JVD Chest: No chest tenderness, No chest wall deformities Lungs: Clear bilaterally to auscultation, no wheezing Cardiovascular: Heart rate NL, Regular rhythm, No gallop, No rubs, Cap refill not delayed, Peripheral circulation Abdomen / GI: Soft, Non-tender, bowel sounds audible quadrant. No palpable mass Lower Extremity: Right lower extremity without swelling or redness. Left lower extremity noted with with improved erythema with demarcations that previously extended from ankle to below the knee. Left lower extremity was Warmth and mildly tender on palpation . Much improved today. Neurologic: Alert, Oriented, grossly intact Psychiatric: Mood/affect normal, Behavior normal, Normal thought content Test 12/01/16 15:15 12/02/16 06:50 12/02/16 16:03 12/03/16 06:53 Troponin T 0.033ug/L (0.0-0.011) Hold Will Top Tube Received (Received) Pro-B-Type Natriuretic Peptide 20618ue/mL (0-738) Urine Color Yellow (YELLOW) Urine Appearance Hazy (CLEAR,HAZY) Urine pH 5.5 (5.0-8.0) Urine Specific Smoot 1.010 (1.003-1.035) Urine Protein Negativemg/dL (NEG,TRACE) Urine Glucose (UA) Negativemg/dL (NEGATIVE) Urine Ketones Negativemg/dL (NEGATIVE) Urine Occult Blood Negative (NEGATIVE) Urine Nitrite Negative (NEGATIVE) Urine Bilirubin Negative (NEGATIVE) Urine Urobilinogen Normalmg/dL (NORMAL) Urine Leukocyte Esterase Negative (NEGATIVE) Urine RBC 0-2/hpf (0-2) Urine WBC 0-5/hpf (0-5) Urine Epithelial Cells Moderate/hpf (NONE-MOD) Urine Crystals None seen (NONE SEEN) Urine Bacteria Few/hpf (NONE-FEW) Urine Hyaline Casts Occasional/lpf (NONE) Urine Granular Casts None seen (NONE SEEN) Urine Waxy Casts None seen (NONE SEEN) Urine Red Blood Cell Casts None seen (NONE SEEN) Urine White Blood Cell Casts None seen (NONE SEEN) Urine Mucus None seen (None Seen) Urine Trichomonas None seen (NONE SEEN) Urine Yeast Few (NONE SEEN) Urinalysis Comment None Urine Culture Reflexed Not indicated White Blood Count 8.4th/mm3 (3.8-10.1) Red Blood Count 3.22mil/mm3 (3.90-5.20) Hemoglobin 10.0g/dL (12.0-15.6) Hematocrit 31.5% (35.0-46.0) Mean Corpuscular Volume 97.8fL (81-100) Mean Corpuscular Hemoglobin 31.1pg (27.0-35.0) Mean Corpuscular Hemoglobin Concent 31.7% (32.0-37.0) Red Cell Distribution Width 18.2% (12.3-15.4) Platelet Count 130bil/L (150-400) Neutrophils (%) (Auto) 78.1% (40-74) Lymphocytes (%) (Auto) 6.5% (14-46) Monocytes (%) (Auto) 14.3% (4-12) Eosinophils (%) (Auto) 0.8% (0-5) Basophils (%) (Auto) 0.1% (0-3) Sodium Level 137mEq/L (134-144) Potassium Level 4.9mEq/L (3.5-5.2) Chloride Level 100mEq/L (97-108) Carbon Dioxide Level 20mmol/L (18-29) Blood Urea Nitrogen 51mg/dL (8-27) Creatinine 2.06mg/dL (0.57-1.00) Estimat Glomerular Filtration Rate 33mL/min (>59) Glucose Level 91mg/dL (60-99) Calcium Level 9.0mg/dL (8.5-10.1) Phosphorus Level 4.2mg/dL (2.5-4.9) Magnesium Level 2.6mg/dL (1.6-2.6) Iron Level 33ug/dL (35-150) Total Iron Binding Capacity 268ug/dL (250-450) Percent Iron Saturation 12%sat (15-50) Unsaturated Iron Binding 235.1ug/dL Ferritin 146ng/mL (13-150) Total Bilirubin 0.5mg/dL (0.0-1.2) Aspartate Amino Transf (AST/SGOT) 18U/L (0-50) Alanine Aminotransferase (ALT/SGPT) 20U/L (0-32) Alkaline Phosphatase 89U/L (25-165) Total Protein 5.9g/dL (6.4-8.4) Albumin 4.0g/dL (3.4-5.0) Discharge Medications Discharge Medications Acyclovir (Acyclovir) 400 Mg Tablet 400 MG PO BID Prescribed by: RHONDA LO MD Amiodarone (Amiodarone) 200 Mg Tablet 200 MG PO DAILY (Reported) Apixaban (Eliquis) 5 Mg Tablet 2.5 MG PO BID Prescribed by: RHONDA LO MD Bumetanide (Bumetanide) 1 Mg Tablet 2 MG PO BIDWM (Reported) Buspirone (Buspirone) 5 Mg Tablet 5 MG PO BID (Reported) Cholecalciferol (Vitamin D3) (Vitamin D3) 2,000 Unit Tablet 2,000 UNIT PO DAILY (Reported) Clindamycin (Clindamycin) 300 Mg Capsule 300 MG PO QID Prescribed by: LAUREL ADAMS DO Ferrous Gluconate (Ferrous Gluconate) 324 Mg Tablet 324 MG PO BIDWM (Reported) Fluorometholone (Fluorometholone) 5 Ml Drops.susp 1 DROP RIGHT_EYE BID (Reported ) Fluticasone/Salmeterol (Advair 250-50 Diskus) 60 Puff/Inh Disk 1 PUFF IH BID ( Reported) Ipratropium/Albuterol Sulfate (Iprat-Albut 0.5-3(2.5) mg/3 mL Inhalant Soln) 3 Ml Ampul.neb 3 ML IH QID (Reported) Montelukast (Montelukast) 10 Mg Tablet 10 MG PO HS (Reported) Pantoprazole DR (Pantoprazole DR) 20 Mg Tablet.dr 20 MG PO DAILYAC Prescribed by: EMMA WAGNER MD Paroxetine (Paroxetine) 20 Mg Tablet 20 MG PO HS Prescribed by: EMMA WAGNER MD Potassium Chloride (Potassium Chloride) 20 Meq Tab.er.prt 20 MEQ PO DAILY ( Reported) TAKE WITH FOOD Ropinirole (Ropinirole) 0.25 Mg Tablet 0.25-0.5 MG PO QPM (Reported) Sennosides (Senna) 8.6 Mg Tablet 17.2 MG PO HS (Reported) Simvastatin (Simvastatin) 10 Mg Tablet 10 MG PO HS (Reported) Spironolactone (Spironolactone) 50 Mg Tablet 50 MG PO DAILY (Reported) Tiotropium [place] (Spiriva) 18 Mcg Cap.w.dev 2 PUFFS IH DAILY (Reported) Vit C/E/Zn/Coppr/Lutein/Zeaxan (Preservision Areds 2 Softgel) 1 Each Capsule 1 EACH PO BID (Reported) As needed Acetaminophen (Acetaminophen) 325 Mg Tablet 325 MG PO Q4H PRN PRN For Fever ( Reported) Carboxymethylcellulos/Glycerin (Refresh Optive Eye Drops) 15 Ml Drops 1 DROP BOTH_EYES Q2H PRN PRN DRY EYES (Reported) Glycerin (Suppository) 1 Each Supp.rect 1 EACH RC DAILY PRN PRN HEMMORRHIDAL TX (Reported) Nitroglycerin SL (Nitrostat) 0.4 Mg Tab.subl 0.4 MG SL Q5MIN PRN PRN For Chest Pain (Reported) Polyethylene Glycol 3350 (Miralax) 17 Gm Powd.pack 17 GM PO DAILY PRN PRN For Constipation (Reported) diphenhydrAMINE HCl (Unisom Sleepmelts) 25 Mg Tab.rapdis 50 MG PO Q4H PRN PRN For Itching (Reported) Additional med instructions Patient will continue clindamycin orally for total of 7 days finishing on 12/08 Followup Plan Follow-up plan Follow-up with Dr. Ronny CONTRERAS in 1 week, patient's PCP, please call to schedule an appointment Discharge Diet: Heart Healthy Discharge Activity: No restrictions Patient Instructions You are being treated for acute cellulitis and this will be treated with 1 week of antibiotics. Please take his antibiotics as instructed and this may be taken with food. I am happy to see that you are clinically improving with your skin infection. Please call your physician if having any increasing diarrhea, fever, chills or trouble breathing. He was seen by the kidney doctor as well during her hospitalization as it appears her kidneys were not functioning optimally due to a significant amount of fluid loss from the medications you were given and that was taken at home Follow-up Provider: Ronny Contreras MD Follow-up with PCP in: 1 week Time spent 45 minutes as per evaluation management including discharge this patient. Greater than 50% time was spent [id number] copies to: Ronny Contreras MD, David DO Dec 03, 2016 15:12
--- NOTE | 2016-12-03 15:24 | NUR ---
Social Work- Discharge Data: EMR reviewed. Pt is on day 2 of hospitalization for left leg cellulitis per H&P. [place]. Pt to discharge to [facility]. No discharge needs. Assessment: Pt who [place]. Plan: Pt to discharge home. No discharge needs. PHIL Peter
--- NOTE | 2016-12-03 18:03 | NUR ---
Neb Treatments Patient has been requesting neb treatments every 2 hours or so today and feels very anxious when told it is not time for treatment yet. Respiratory therapist here and will explain reason for time frame. Patient requesting 02 -2l if not time for treatment states that is what I do at home . Patient 's room air saturation low to mid 90's.
[2016-12-03] MEDS: PARoxetine 20 mg Tablet PO SCH (21:20)
[2016-12-03] MEDS: Artificial Tears 15 mL Ophthalmic Solution BOTH_EYES PRN (21:21)
[2016-12-04 04:33] VITALS: BP 103/65; PULSE 71; RESP 20; O2SAT 95
[2016-12-04] MEDS: Clindamycin Inj 600 MG in IV Premix 1 EACH IV SCH (04:59)
--- NOTE | 2016-12-04 05:53 | NUR ---
Activity Patient requested one neb treatment 2 hours after receiving a dose. Easily redirected after informed of QID schedule. Turned O2 from 1L to 2L, SOB tolerable at this time.
[2016-12-04 07:08] VITALS: PULSE 69; RESP 18; O2SAT 96
[2016-12-04] MEDS: Albuterol-Ipratropium 3 mL Inhalation Solution NEB SCH (07:08)
[2016-12-04] MEDS: [UNRECOGNIZED DRUG - OTHER] PO SCH (08:30)
[2016-12-04] MEDS: [UNRECOGNIZED DRUG - OTHER] RIGHT_EYE SCH (08:30)
[2016-12-04] MEDS: Pantoprazole 20 mg ER24 Tablet PO SCH (08:41)
[2016-12-04] MEDS: Acyclovir 400 mg Tablet PO SCH (08:42)
[2016-12-04] MEDS: Potassium Chloride 20 mEq SR Tablet PO SCH (08:42)
[2016-12-04] MEDS: BusPIRone 15 mg Dividose Tablet PO SCH (08:43)
[2016-12-04] MEDS: Fluticasone-Salmererol 250-50 Inhaler INHALATION SCH (08:44)
[2016-12-04 10:16] VITALS: PULSE 66; RESP 20; O2SAT 95
--- NOTE | 2016-12-04 11:36 | PCM.DC.MED ---
Discharge Summary Date of Service Dec 04, 2016 Dates of Hospitalization Date of Hospital Admission Dec 01, 2016 at 18:16 Date of Discharge: Dec 03, 2016 Providers: Admitting Physician: Laurel Leggett MD Primary Care Physician: Ronny Contreras MD Attending Physician: Laurel Leggett MD Diagnosis at Time of Discharge Diagnosis at Time of Discharge Acute cellulitis, left lower extremity Acute on chronic renal failure Ischemic cardiomyopathy leading to acute systolic CHF exacerbation with last echo in July 2015 showing EF of 23% History of aortic valve replacement CAD status post CABG 1 COPD Hyperlipidemia Depression with anxiety Insomnia Consultations Nephrology Procedures XRay, CTs & MRIs Checks x-ray reviewed : Chronic CHF pattern, prior heart surgery, no definite acute disease. It is conceivable that a small degree of acute CHF exacerbation could be superimposed PROCEDURE: US VEINOUS LEG DUPLEX UNILATERAL, LEFT INDICATIONS: L leg swelling TECHNIQUE: Real-time imaging, as well as color and pulse Doppler interrogation, were performed of the lower extremity deep veins from the inguinal ligament to the popliteal fossa. COMPARISON: None. FINDINGS: The deep veins are normally compressible, and free of intraluminal thrombus. Color and pulse Doppler demonstrate phasic intraluminal flow, with phasicity that is greater than often is seen, in a pattern that may reflect some degree of right-sided cardiac insufficiency. There is normal augmentation response to distal compression maneuver. IMPRESSION: No DVT found. Elevated phasicity of the venous flow can be seen in the setting of restriction of antegrade flow through the right heart. Dictated by: Eduardo Galvez M.D. on 12/01/2016 at 15:56 Other Diagnostics IMPRESSION: No DVT found. Elevated phasicity of the venous flow can be seen in the setting of restriction of antegrade flow through the right heart. Dictated by: Eduardo Galvez M.D. on 12/01/2016 at 15:56 Brief History History of present illness as per admitting physician: Pt is an 81 y/o female anticoagulated on Eliquis w/ a hx of LLE DVT, ischemic cardiomyopathy, aortic valve replacement, CAD s/p CABG, CHF, COPD, hyperlipidemia, renal insufficiency, presenting to the ED c/o LLE swelling onset about 3 days ago. Patient also complaining of calf pain . No chest pain, no shortness of breath . She has a history of previous lower extremity DVT and chronically on Eliquis . Patient is found to have extensive lower extremity cellulitis from ankle to below the knee. Ultrasound showed no DVT. Hospital Course #. LLE Cellulitis ,acute,poa -Continue clindamycin 600 mg IV Q6H . This antibiotic, clindamycin will be continued for total of 6 days to be completed on 12/08 and was transitioned to oral regimen at discharge, 300 mg every 6 hours. -US shows no DVT, continue Eliquis for h/o DVT -At the time of discharge patient clinically improved with residual moderate left lower extremity edema but improvement in cellulitis pain and erythema. Patient was afebrile hemodynamically stable with adequate oxygenation while discharge was held yesterday due to subjective need for nebulizers, patient denies of any tachycardia or significant hypoxia or unstable event hemodynamics. Subjective felt better this morning and is cleared for discharge medically with again stabl hemodynamics and adequate oxygenation.. #. Acute on chronic renal failure, creatinine continues to improve, we will repeat with PCP as outpatient within a week -During hospitalization we held patient's Spironolactone and bumetanide given acute kidney injury -Consulted nephrology, pressure recommendations and will continue with 2 mg of Bumex given improvement in kidney function at the time of discharge #Ischemic cardiomyopathy/Congestive heart failure - Last echo 07/23/2015 EF 23% -Diuresis resumed at discharge as above -Continue amiodarone #COPD -Continue AdvBridger leonardooNekaye at discharge, patient did require intermittent breathing treatments during her hospitalization Chronic medical problems #History of AVR (aortic valve replacement) #CAD (coronary artery disease) S/P CABG x 1 #Hyperlipidemia -c/w simvastatin #Depression with anxiety #Insomnia disposition: Discharged back to [facility] with follow-up closely in one week with Dr. CONTRERAS, patient's PCP Exam Vital Signs (Last) Date Time Temp Pulse Resp B/P Pulse Ox O2 Delivery O2 Flow Rate FiO2 12/04/16 10:16 66 20 95 Room Air 12/04/16 04:33 36.6 103/65 2.00 Exam General/constitutional: Elderly female, no acute distress HEENT: Atraumatic, Normocephalic, PERRL, sclerae anicteric Mouth: Moist oropharyngeal mucosa Neck: Supple, Full range of motion. Trachea is midline, no JVD Chest: No chest tenderness, No chest wall deformities Lungs: Clear bilaterally to auscultation, no wheezing Cardiovascular: Heart rate NL, Regular rhythm, No gallop, No rubs, Cap refill not delayed, Peripheral circulation Abdomen / GI: Soft, Non-tender, bowel sounds audible quadrant. No palpable mass Lower Extremity: Right lower extremity without swelling or redness. Left lower extremity noted with with improved erythema with demarcations that previously extended from ankle to below the knee. Left lower extremity was Warmth and mildly tender on palpation . Much improved today. Neurologic: Alert, Oriented, grossly intact Psychiatric: Mood/affect normal, Behavior normal, Normal thought content Test 12/01/16 15:15 12/02/16 06:50 12/02/16 16:03 12/03/16 06:53 Troponin T 0.033ug/L (0.0-0.011) Hold Will Top Tube Received (Received) Pro-B-Type Natriuretic Peptide 78464ml/mL (0-738) Urine Color Yellow (YELLOW) Urine Appearance Hazy (CLEAR,HAZY) Urine pH 5.5 (5.0-8.0) Urine Specific [place] 1.010 (1.003-1.035) Urine Protein Negativemg/dL (NEG,TRACE) Urine Glucose (UA) Negativemg/dL (NEGATIVE) Urine Ketones Negativemg/dL (NEGATIVE) Urine Occult Blood Negative (NEGATIVE) Urine Nitrite Negative (NEGATIVE) Urine Bilirubin Negative (NEGATIVE) Urine Urobilinogen Normalmg/dL (NORMAL) Urine Leukocyte Esterase Negative (NEGATIVE) Urine RBC 0-2/hpf (0-2) Urine WBC 0-5/hpf (0-5) Urine Epithelial Cells Moderate/hpf (NONE-MOD) Urine Crystals None seen (NONE SEEN) Urine Bacteria Few/hpf (NONE-FEW) Urine Hyaline Casts Occasional/lpf (NONE) Urine Granular Casts None seen (NONE SEEN) Urine Waxy Casts None seen (NONE SEEN) Urine Red Blood Cell Casts None seen (NONE SEEN) Urine White Blood Cell Casts None seen (NONE SEEN) Urine Mucus None seen (None Seen) Urine Trichomonas None seen (NONE SEEN) Urine Yeast Few (NONE SEEN) Urinalysis Comment None Urine Culture Reflexed Not indicated White Blood Count 8.4th/mm3 (3.8-10.1) Red Blood Count 3.22mil/mm3 (3.90-5.20) Hemoglobin 10.0g/dL (12.0-15.6) Hematocrit 31.5% (35.0-46.0) Mean Corpuscular Volume 97.8fL (81-100) Mean Corpuscular Hemoglobin 31.1pg (27.0-35.0) Mean Corpuscular Hemoglobin Concent 31.7% (32.0-37.0) Red Cell Distribution Width 18.2% (12.3-15.4) Platelet Count 130bil/L (150-400) Neutrophils (%) (Auto) 78.1% (40-74) Lymphocytes (%) (Auto) 6.5% (14-46) Monocytes (%) (Auto) 14.3% (4-12) Eosinophils (%) (Auto) 0.8% (0-5) Basophils (%) (Auto) 0.1% (0-3) Sodium Level 137mEq/L (134-144) Potassium Level 4.9mEq/L (3.5-5.2) Chloride Level 100mEq/L (97-108) Carbon Dioxide Level 20mmol/L (18-29) Blood Urea Nitrogen 51mg/dL (8-27) Creatinine 2.06mg/dL (0.57-1.00) Estimat Glomerular Filtration Rate 33mL/min (>59) Glucose Level 91mg/dL (60-99) Calcium Level 9.0mg/dL (8.5-10.1) Phosphorus Level 4.2mg/dL (2.5-4.9) Magnesium Level 2.6mg/dL (1.6-2.6) Iron Level 33ug/dL (35-150) Total Iron Binding Capacity 268ug/dL (250-450) Percent Iron Saturation 12%sat (15-50) Unsaturated Iron Binding 235.1ug/dL Ferritin 146ng/mL (13-150) Total Bilirubin 0.5mg/dL (0.0-1.2) Aspartate Amino Transf (AST/SGOT) 18U/L (0-50) Alanine Aminotransferase (ALT/SGPT) 20U/L (0-32) Alkaline Phosphatase 89U/L (25-165) Total Protein 5.9g/dL (6.4-8.4) Albumin 4.0g/dL (3.4-5.0) Vitamin D 25-Hydroxy 46.7ng/mL (30.0-100.0) Discharge Medications Discharge Medications Acyclovir (Acyclovir) 400 Mg Tablet 400 MG PO BID Prescribed by: RHONDA LO MD Amiodarone (Amiodarone) 200 Mg Tablet 200 MG PO DAILY (Reported) Apixaban (Eliquis) 5 Mg Tablet 2.5 MG PO BID Prescribed by: RHONDA LO MD Bumetanide (Bumetanide) 1 Mg Tablet 2 MG PO BIDWM (Reported) Buspirone (Buspirone) 5 Mg Tablet 5 MG PO BID (Reported) Cholecalciferol (Vitamin D3) (Vitamin D3) 2,000 Unit Tablet 2,000 UNIT PO DAILY (Reported) Clindamycin (Clindamycin) 300 Mg Capsule 300 MG PO QID Prescribed by: LAUREL ADAMS DO Ferrous Gluconate (Ferrous Gluconate) 324 Mg Tablet 324 MG PO BIDWM (Reported) Fluorometholone (Fluorometholone) 5 Ml Drops.susp 1 DROP RIGHT_EYE BID (Reported ) Fluticasone/Salmeterol (Advair 250-50 Diskus) 60 Puff/Inh Disk 1 PUFF IH BID ( Reported) Ipratropium/Albuterol Sulfate (Iprat-Albut 0.5-3(2.5) mg/3 mL Inhalant Soln) 3 Ml Ampul.neb 3 ML IH QID (Reported) Montelukast (Montelukast) 10 Mg Tablet 10 MG PO HS (Reported) Pantoprazole DR (Pantoprazole DR) 20 Mg Tablet.dr 20 MG PO DAILYAC Prescribed by: EMMA WAGNER MD Paroxetine (Paroxetine) 20 Mg Tablet 20 MG PO HS Prescribed by: EMMA WAGNER MD Potassium Chloride (Potassium Chloride) 20 Meq Tab.er.prt 20 MEQ PO DAILY ( Reported) TAKE WITH FOOD Ropinirole (Ropinirole) 0.25 Mg Tablet 0.25-0.5 MG PO QPM (Reported) Sennosides (Senna) 8.6 Mg Tablet 17.2 MG PO HS (Reported) Simvastatin (Simvastatin) 10 Mg Tablet 10 MG PO HS (Reported) Spironolactone (Spironolactone) 50 Mg Tablet 50 MG PO DAILY (Reported) Tiotropium [place] (Spiriva) 18 Mcg Cap.w.dev 2 PUFFS IH DAILY (Reported) Vit C/E/Zn/Coppr/Lutein/Zeaxan (Preservision Areds 2 Softgel) 1 Each Capsule 1 EACH PO BID (Reported) As needed Acetaminophen (Acetaminophen) 325 Mg Tablet 325 MG PO Q4H PRN PRN For Fever ( Reported) Carboxymethylcellulos/Glycerin (Refresh Optive Eye Drops) 15 Ml Drops 1 DROP BOTH_EYES Q2H PRN PRN DRY EYES (Reported) Glycerin (Suppository) 1 Each Supp.rect 1 EACH RC DAILY PRN PRN HEMMORRHIDAL [place] (Reported) Nitroglycerin SL (Nitrostat) 0.4 Mg Tab.subl 0.4 MG SL Q5MIN PRN PRN For Chest Pain (Reported) Polyethylene Glycol 3350 (Miralax) 17 Gm Powd.pack 17 GM PO DAILY PRN PRN For Constipation (Reported) diphenhydrAMINE HCl (Unisom Sleepmelts) 25 Mg Tab.rapdis 50 MG PO Q4H PRN PRN For Itching (Reported) Additional med instructions Patient will continue clindamycin orally for total of 7 days finishing on 12/08 Followup Plan Follow-up plan Follow-up with Dr. Ronny CONTRERAS in 1 week, patient's PCP, please call to schedule an appointment Discharge Diet: Heart Healthy Discharge Activity: No restrictions Patient Instructions You are being treated for acute cellulitis and this will be treated with 6 more days of antibiotics, completing a regimen on 12/08. Please take your antibiotics as instructed and this may be taken with food. I am happy to see that you are clinically improving with your skin infection. Please call your physician if having any increasing diarrhea, fever, chills or trouble breathing. You were seen by the kidney doctor as well during her hospitalization as it appears her kidneys were not functioning optimally due to a significant amount of fluid loss from the medications you were given and that was taken at home Follow-up Provider: Ronny Contreras MD Follow-up with PCP in: 1 week Time spent 30 minutes spent with evaluation and management including discharge, greater than 50% time spent [id number] with coordination of care Attending Statement Patient stable for discharge, would repeat a BMP to recheck renal function during follow-up with PCP. copies to: Ronny Contreras MD, David DO Dec 04, 2016 11:36
--- NOTE | 2016-12-04 11:54 | PCM.PNNEPH ---
Subjective Date of Service Dec 04, 2016 Subjective She is doing better. She will be discharged home today. There was no acute issues overnight. Exam Vital Signs Vital Sign - Last Date Time Temp Pulse Resp B/P Pulse Ox O2 Delivery O2 Flow Rate FiO2 12/04/16 10:16 66 20 95 Room Air 12/04/16 04:33 36.6 103/65 2.00 Intake and Output 12/03/16 12/03/16 12/04/16 Cumulative From/Thru 15:00 23:00 07:00 12/01/16 12:57 - 12/04/16 06:07 Intake Total 800 ml 537 ml 5112 ml Output Total 300 ml 600 ml 2275 ml Balance 500 ml -63 ml 2837 ml Intake Oral 800 ml 537 ml 3655 ml IV Total 1457 ml Output Urine Total 300 ml 600 ml 2275 ml # Voids 5 # Bowel Movements 0 0 2 Exam General appearance: Awake, alert, oriented x3. No acute distress. HEENT: No pallor. No icteric sclerae. Atraumatic. Moist mucous membranes. PERRLA. Neck: Positive for JVD. No lymphadenopathy. No thyroid enlargement. Heart: Regular rhythm. Normal S1, S2. Systolic murmur noted. Lungs: Decreased breath sound at bases. No wheezing. No rhonchi. Abdomen: Soft, obese. Active bowel sounds. No hepatosplenomegaly. Extremities: No edema on the right lower extremity. Positive 1+ pitting edema. Lab and Diagnostics Result Diagram: 12/03/16 0653 12/03/16 0653 X-Rays, CTs and MRIs Checks x-ray reviewed : Chronic CHF pattern, prior heart surgery, no definite acute disease. It is conceivable that a small degree of acute CHF exacerbation could be superimposed PROCEDURE: US VEINOUS LEG DUPLEX UNILATERAL, LEFT INDICATIONS: L leg swelling TECHNIQUE: Real-time imaging, as well as color and pulse Doppler interrogation, were performed of the lower extremity deep veins from the inguinal ligament to the popliteal fossa. COMPARISON: None. FINDINGS: The deep veins are normally compressible, and free of intraluminal thrombus. Color and pulse Doppler demonstrate phasic intraluminal flow, with phasicity that is greater than often is seen, in a pattern that may reflect some degree of right-sided cardiac insufficiency. There is normal augmentation response to distal compression maneuver. IMPRESSION: No DVT found. Elevated phasicity of the venous flow can be seen in the setting of restriction of antegrade flow through the right heart. Dictated by: Eduardo Galvez M.D. on 12/01/2016 at 15:56 Additional Diagnostics IMPRESSION: No DVT found. Elevated phasicity of the venous flow can be seen in the setting of restriction of antegrade flow through the right heart. Dictated by: Eduardo Galvez M.D. on 12/01/2016 at 15:56 Plan Impression 1. Skin and soft tissue infection of the left lower extremity. 2. Acute kidney injury on chronic kidney disease secondary to over-diuresis and ongoing infection, acute tubular necrosis. 3. 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 4. Ischemic cardiomyopathy. 5. Coronary artery disease status post coronary artery bypass grafting. 6. Severe aortic stenosis status post aortic valve replacement. 7. Paroxysmal atrial fibrillation. 8. COPD. Plan Continue Bumex 2 mg once a day. Recommend low-salt diet. Follow-up adrenal in 1-2 week. Fabio Ortega MD Dec 04, 2016 11:54
--- NOTE | 2016-12-04 15:08 | NUR ---
Discharge Patient discharged home with daughter. Patient was given verbal and written discharge instructions with daughter present as patient can be forgetful. Patient understands s/s to report or seek medical help for and stated no further questions when asked. patient had belongings when she left and was transported by daughter.
== END 2016-12-04 11:49 | disposition home or self-care (01) | DRG 602 ==
LOC: SED 12:34 → OSC 18:16
PROVIDERS: ADMIT Internal Medicine; ATTEND Internal Medicine
DX: L03.116 Cellulitis of left lower limb (principal); N17.0 Acute kidney failure with tubular necrosis; N18.4 Chronic kidney disease, stage 4 (severe); I82.502 Chronic embolism and thrombosis of unspecified deep veins of left lower extremity; I25.5 Ischemic cardiomyopathy; I25.10 Atherosclerotic heart disease of native coronary artery without angina pectoris; J44.9 Chronic obstructive pulmonary disease, unspecified; I48.0 Paroxysmal atrial fibrillation; I12.9 Hypertensive chronic kidney disease with stage 1 through stage 4 chronic kidney disease, or unspecified chronic kidney disease; M17.11 Unilateral primary osteoarthritis, right knee; G47.00 Insomnia, unspecified; Z95.0 Presence of cardiac pacemaker; Z98.61 Coronary angioplasty status; Z88.0 Allergy status to penicillin; Z95.2 Presence of prosthetic heart valve; Z79.01 Long term (current) use of anticoagulants

== ENCOUNTER 2017-02-04 17:04 | Emergency (ER) | payer MEDICARE ==
[~2017-02-04] VITALS: Ht 160 cm; Wt 74.1 kg
[~2017-02-04 17:04] MED LIST changes: +ACET325T51 PO; -AREDS VITAMIN PO; +BUME1TAB4 PO; +BUSP5TAB3 PO; +CARB15DR2 BOTH_EYES; +CHOL200025 PO; -CHOL200047 PO; +CLIN-78 PO; +DIPH-36 PO; +FERR324T5 PO; -FERR325T20 PO; -FURO40TA4 PO; +GLYC1SUP77 RC; +POTA20TA16 PO; +ROPI0.252 PO; +SENN-133 PO; +SPIR50TA2 PO; +TIOT18CA3 IH; -TIOT18CA3 INHALATION; +VIT1CAPS46 PO
[2017-02-04 17:07] VITALS: BP 103/64; PULSE 71; RESP 26; O2SAT 96
--- NOTE | 2017-02-04 17:19 | ED.REPORT ---
HPI-General Illness Date of Service February 04, 2017 ED Provider: Lisandra Ferrari MD The patient is an 81 year old female with history of ischemic cardiomyopathy, s/ p aortic valve replacement and pacemaker, coronary artery disease s/p CABG, congestive heart failure, COPD, hyperlipidemia, renal insufficiency, and DVT on Eliquis, who was sent to the emergency department from urgent care for altered mental status. The patient does not believe there is anything wrong, she is unsure why she went to urgent care today. She denies fever, chills, cough, congestion, abdominal pain, nausea, vomiting, diarrhea, constipation, dysuria or hematuria. She denies recent falls or trauma. She has chronic left lower extremity swelling. Per urgent care physician the patient had sudden onset of jaundice and altered mental status. Her daughter thought she had a UTI. The patient has been complaining of lower abdominal pain and she has seemed more confused compared to normal. Her daughter does report the patient has had some issues with her memory over the last few months. Nursing Notes Stated Complaint: CONFUSED,YELLOW SKIN Chief Complaint: General Complaint Nursing Notes Reviewed: Yes Allergies: Coded Allergies: Penicillins (Verified Allergy, Intermediate, hives, 02/04/17) Scheduled Acyclovir (Acyclovir) 400 Mg Tablet 400 MG PO BID Amiodarone (Amiodarone) 200 Mg Tablet 200 MG PO DAILY Apixaban (Eliquis) 5 Mg Tablet 2.5 MG PO BID Bumetanide (Bumetanide) 1 Mg Tablet 2 MG PO BIDWM Buspirone (Buspirone) 5 Mg Tablet 5 MG PO BID Cholecalciferol (Vitamin D3) (Vitamin D3) 2,000 Unit Tablet 2,000 UNIT PO DAILY Clindamycin (Clindamycin) 300 Mg Capsule 300 MG PO QID Ferrous Gluconate (Ferrous Gluconate) 324 Mg Tablet 324 MG PO BIDWM Fluorometholone (Fluorometholone) 5 Ml Drops.susp 1 DROP RIGHT_EYE BID Fluticasone/Salmeterol (Advair 250-50 Diskus) 60 Puff/Inh Disk 1 PUFF IH BID Ipratropium/Albuterol Sulfate (Iprat-Albut 0.5-3(2.5) mg/3 mL Inhalant Soln) 3 Ml Ampul.neb 3 ML IH QID Montelukast (Montelukast) 10 Mg Tablet 10 MG PO HS Pantoprazole DR (Pantoprazole DR) 20 Mg Tablet.dr 20 MG PO DAILYAC Paroxetine (Paroxetine) 20 Mg Tablet 20 MG PO HS Potassium Chloride (Potassium Chloride) 20 Meq Tab.er.prt 20 MEQ PO DAILY TAKE WITH FOOD Ropinirole (Ropinirole) 0.25 Mg Tablet 0.25-0.5 MG PO QPM Sennosides (Senna) 8.6 Mg Tablet 17.2 MG PO HS Simvastatin (Simvastatin) 10 Mg Tablet 10 MG PO HS Spironolactone (Spironolactone) 50 Mg Tablet 50 MG PO DAILY Tiotropium [place] (Spiriva) 18 Mcg Cap.w.dev 2 PUFFS IH DAILY Vit C/E/Zn/Coppr/Lutein/Zeaxan (Preservision Areds 2 Softgel) 1 Each Capsule 1 EACH PO BID Scheduled PRN Acetaminophen (Acetaminophen) 325 Mg Tablet 325 MG PO Q4H PRN PRN For Fever Carboxymethylcellulos/Glycerin (Refresh Optive Eye Drops) 15 Ml Drops 1 DROP BOTH_EYES Q2H PRN PRN DRY EYES Glycerin (Suppository) 1 Each Supp.rect 1 EACH RC DAILY PRN PRN HEMMORRHIDAL [place] Nitroglycerin SL (Nitrostat) 0.4 Mg Tab.subl 0.4 MG SL Q5MIN PRN PRN For Chest Pain Polyethylene Glycol 3350 (Miralax) 17 Gm Powd.pack 17 GM PO DAILY PRN PRN For Constipation diphenhydrAMINE HCl (Unisom Sleepmelts) 25 Mg Tab.rapdis 50 MG PO Q4H PRN PRN For Itching General Time Seen by MD: 17:16 Chief Complaint Altered mental status Hx Obtained From: Patient, Daughter Arrived By: Wheelchair Sudden in Onset?: Yes Onset Occurred: Yesterday Symptom Duration: Since onset Severity: Current: No pain currently Severity: Maximum: No pain Recent Healthcare: No recent hospitalization, Recent doctor visit Similar Sx Previous: No Past Medical History Past Medical History Ischemic cardiomyopathy AVR (aortic valve replacement) CAD (coronary artery disease) S/P CABG x 1 Congestive heart failure - Last echo 07/23/2015 EF 23% LBBB (left bundle branch block) Leg edema DVT Orthostatic hypotension COPD Hyperlipidemia Lower extremity length discrepancy Renal insufficiency Corneal abrasion Depression with anxiety Insomnia Osteoarthritis, s/p rt. knee replacement Osteopenia Past Surgical History Pacemaker in October Aortic vave replacement Right knee replacement Reports: CABG Smoking History Former Smoker Social History Other Social History: Good social support, Local resident Ambulatory Status Independent Review of Systems Full Review of Systems Constitutional: Denies: Chills, Fever Ears / Nose / Throat: Denies: Nasal congestion Respiratory: Denies: Non-productive cough, Prod cough, bloody, Prod cough, brown, Prod cough, clear, Prod cough, green GI: Denies: Abdominal pain, Constipation, Diarrhea, Nausea, Vomiting Female: Denies: Dysuria, Hematuria Musculoskeletal: Reports: Extremity swelling (chronic) Neurologic: Reports: Confusion (per daughter) Complete sys rev & neg: except as marked. Physical Exam Vital Signs Vital Signs Date Time Temp Pulse Resp B/P Pulse Ox O2 Delivery O2 Flow Rate FiO2 02/04/17 17:07 36.3 71 26 103/64 96 Initial VS: Reviewed Head / Eyes: Atraumatic, Normocephalic, PERRL ENT: Mucous membranes moist, Conjunctiva normal, No scleral icterus Neck: Supple, Non-tender, Full range of motion Abdomen / GI: Soft, Non-tender, No guarding, No rebound, No distention Extremities: Vascular intact, Neuro intact General/Constitutional: Awake Respiratory / Chest: No respiratory distress, No wheezing Bibasilar crackles, minimal on the right, up to the mid lung field on the left. Cardiovascular: Heart rate NL, Peripheral circulation NL Heart Sounds / Murmur: Positive: Diastolic murmur present. (II/), Systolic murmur present.. (IV/) Upper Extremities Upper Extremity / MS: Neurologic intact, Vascular intact Bruise on the back of her right arm. Skin: Color NL, No rash Multiple bruises in various stages of healing. Neurologic: Speech NL, No motor deficits, No sensory deficits Mental Status: Positive: Confused Interpretation & Diagnostics Lab Results Interpretation Test 02/04/17 17:59 ECG Interpretation ECG Interpretation: Ventricular-paced rhythm. Rate 70. Time: 18:05 Interpreted by: ED physician Re-Eval/Medical Decision Source of Hx: Old records, Family, Private physician Counseled Regarding: Diagnosis, Lab results Discharge & Departure Shift Change Sign-Out Patient Care Transferred: Yes Discussed Complaint(s): Yes Laboratory Evaluation: Ordered, not yet done Imaging Studies: Ordered, not yet done To Dr Cheek, admission likely Primary Impression: Altered mental status Altered mental status type: unspecified Qualified Code: R41.82 - Altered mental status, unspecified Discharge Condition All VS Reviewed: Yes Condition: Stable Referrals: Ronny Contreras MD (PCP) Care Transferred to: Dr. Cheek Care Transferred at: 18:01 Scribe Attestation Portions of this note were transcribed by Dyana Alatorre. I, Dr. Ferrari personally performed the history, physical exam and medical decision-making; I reviewed and confirmed the accuracy of the information in the transcribed note. Signed by: Ahsan Pa, 02/04/2017 at 1801. copies to: Ronny Contreras MD, Shawna L MD February 04, 2017 17:19 Dyana Alatorre February 04, 2017 17:29 [place] February 04, 2017 18:06
[2017-02-04 18:36] LABS: APPEARANCE,URINE CLEAR (CLEAR,HAZY); COLOR,URINE YELLOW (YELLOW)
[2017-02-04 18:37] LABS: OCCULT BLOOD,URINE NEGATIVE (NEGATIVE); UROBILINOGEN,URINE NORMAL (NORMAL)
[2017-02-04 18:59] VITALS: BP 90/42; PULSE 71; RESP 20; O2SAT 97
--- NOTE | 2017-02-04 19:07 | DRSVH ---
PROCEDURE: X-RAY CHEST ONE VIEW, PORTABLE ([id number]) INDICATIONS: confusion TECHNIQUE: One view of the chest was acquired. COMPARISON: [facility], CR, XR CHEST 2VW, 07/29/2016, 10:31. [facility], CR , XR CHEST 1VW (PORTABLE), 12/01/2016, 16:06. FINDINGS: Surgical changes and devices: Sternotomy wires and dual-lead cardiac pacer Lungs and pleura: No pleural effusions or pneumothorax. Diffuse scarring/atelectasis. Mildly decreas ed opacities in the mid right lung and right lung base. High density left upper lobe calcified granu laurent. There is a 1.8 cm nodule projecting in the right upper lobe. Mediastinum: Mediastinal contours appear normal. Heart size is enlarged. Bones and chest wall: No suspicious bony lesions. Lateral curvature of the spine and diffuse discoge morales changes Overlying soft tissues appear unremarkable. IMPRESSION: 1.8 cm nodular opacity projecting in the right upper lobe. As clinical warranted, this could be furth er investigated with noncontrast chest CT or continued radiographic surveillance to document stabilit y at clinical discretion. Cardiomegaly. Dictated by: Mir Kasper M.D. on 02/04/2017 at 19:03 Approved by: Mir Kasper M.D. on 02/04/2017 at 19:06
[2017-02-04 19:27] LABS: BASOPHILS % (AUTO) 0.2 % (0-3); EOSINOPHILS % (AUTO) 2.4 % (0-5); MONOCYTES % (AUTO) 14.7 % (4-12); Mean Corpuscular Hemoglobin 33.1 pg (27.0-35.0); Mean Corpuscular Volume 95.8 fL (81-100); NEUTROPHILS % (AUTO) 75.7 % (40-74); Platelet Count 182 bil/L (150-400)
--- NOTE | 2017-02-04 19:44 | DRSVH ---
PROCEDURE: CT BRAIN WITHOUT CONTRAST ([id number]) INDICATIONS: confusion TECHNIQUE: Noncontrast 4.5 mm thick angled axial sections acquired from the foramen magnum to the vertex, with c oronal reformats. COMPARISON: None. FINDINGS: Image quality: Excellent. CSF spaces: Basal cisterns are patent. No extra-axial fluid collections. The ventricles are symmet tram in size and shape. Brain: No intracranial bleeds or masses. There is cerebral volume loss for age, with resultant vent ricular and sulcal prominence. There are periventricular and deep white matter chronic small vessel ischemic changes. There is intracranial internal carotid artery atherosclerosis. Skull and face: Calvarium and visualized facial bones appear intact, without suspicious lesions. Sinuses: Visualized sinuses and mastoids are clear. IMPRESSION: No acute intracranial process Dictated by: Mir Kasper M.D. on 02/04/2017 at 19:39 Approved by: Mir Kasper M.D. on 02/04/2017 at 19:42
[2017-02-04 19:57] VITALS: BP 100/46; PULSE 68; RESP 15; O2SAT 96
[2017-02-04 21:22] VITALS: BP 106/45; PULSE 66; RESP 23; O2SAT 97
[2017-02-04 21:52] VITALS: BP_SYST 106; PULSE 67; RESP 14; O2SAT 94
== END 2017-02-04 21:53 | disposition home or self-care (01) ==
LOC: SED 17:04
DX: R41.82 Altered mental status, unspecified (principal); M79.89 Other specified soft tissue disorders; I25.5 Ischemic cardiomyopathy; I25.10 Atherosclerotic heart disease of native coronary artery without angina pectoris; I50.9 Heart failure, unspecified; J44.9 Chronic obstructive pulmonary disease, unspecified; E78.5 Hyperlipidemia, unspecified; N28.9 Disorder of kidney and ureter, unspecified; F32.9 Major depressive disorder, single episode, unspecified; F41.9 Anxiety disorder, unspecified; Z95.2 Presence of prosthetic heart valve; Z95.0 Presence of cardiac pacemaker; Z95.1 Presence of aortocoronary bypass graft; Z86.718 Personal history of other venous thrombosis and embolism; Z87.891 Personal history of nicotine dependence; Z79.01 Long term (current) use of anticoagulants; Z88.0 Allergy status to penicillin
CPT/HCPCS: 36415; 70450; 71010; 80053; 81000; 81002; 82140; 85025; 85610; 87086; 87088; 93005; 99285; G0463

== ENCOUNTER 2017-05-03 13:26 | Emergency (ER) | payer MEDICARE ==
[~2017-05-03] VITALS: Ht 160 cm; Wt 68.2 kg
[2017-05-03 13:28] VITALS: BP 107/47; PULSE 64; RESP 16; O2SAT 95
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
--- NOTE | 2017-05-03 14:28 | DRSVH ---
PROCEDURE: CT BRAIN WITHOUT CONTRAST ([id number]) INDICATIONS: trauma, anticoagulated TECHNIQUE: Noncontrast 4.5 mm thick angled axial sections acquired from the foramen magnum to the vertex, with c oronal reformats. COMPARISON: [facility], CT, CT BRAIN WO CON, 02/04/2017, 19:18. FINDINGS: Image quality: Excellent. CSF spaces: Basal cisterns are patent. No extra-axial fluid collections. The ventricles are symmet tram in size and shape. Brain: No intracranial bleeds or masses. There is marked cerebral volume loss for age, with resulta nt ventricular and sulcal prominence. There are periventricular and deep white matter chronic small vessel ischemic changes. There is intracranial internal carotid artery atherosclerosis. Skull and face: Calvarium and visualized facial bones appear intact, without suspicious lesions. Sinuses: Visualized sinuses and mastoids are clear. IMPRESSION: 1. No acute intracranial findings. 2. Extensive findings likely associated with chronic microvascular ischemic changes. Dictated by: Audra Reyes M.D. on 05/03/2017 at 14:23 Approved by: Audra Reyes M.D. on 05/03/2017 at 14:26
--- NOTE | 2017-05-03 14:31 | DRSVH ---
PROCEDURE: CT FACE WITHOUT CONTRAST ([id number]) INDICATIONS: mandible pain TECHNIQUE: Noncontrast 1.5 mm thick axial images acquired from the mandible through the frontal sinuses, with co raj and sagittal reformatting. For radiation dose reduction, the following was used: automated ex posure control. COMPARISON: None. FINDINGS: Image quality: Degraded by persistent patient motion despite reattempted imaging after initial acquis ition.. Bones and teeth: Orbital cabrera are intact. Sinus cabrera show no fracture or deformity. Nasal bones and septum are intact. Visualized portions of the mandible demonstrate no fractures or subluxation. Zygomatic arches are intact. Pterygoid plates are intact. Visualized portions of the skull base an d auditory canals are intact. Sinuses: Paranasal sinuses are aerated, without fluid levels, mucosal thickening, or mucoceles. [place] air cells are aerated. Soft tissues: No edema, masses, or fluid collections. No enlarged lymph nodes. No soft tissue lace rations or debris. Vascular: Visualized vascular structures appear normal in the absence of contrast. Bony vascular fo ramina and canals are intact. IMPRESSION: A source of mandibular pain is not identified, no fracture or traumatic dislocation is fo und. The patient motion during image acquisition is persistent and does degrade quality of visualiza tion. Followup imaging may become necessary after symptoms have improved to allow improved visualiza tion. Dictated by: Eduardo Galvez M.D. on 05/03/2017 at 14:27 Approved by: Eduardo Galvez M.D. on 05/03/2017 at 14:29
[2017-05-03] MEDS ORDERED: TdaP Vaccine 0.5 mL Inj IM ONE (14:40)
[2017-05-03] MEDS ORDERED: Bacitracin Ointment Packet TOPICAL ONE (14:40)
[2017-05-03] MEDS: Lidocaine-Epi-Tetracaine Solution 3 mL Syringe TOPICAL ONE ×2 (15:22→15:28)
[2017-05-03 15:57] VITALS: BP 104/60; PULSE 68; O2SAT 96
== END 2017-05-03 15:57 | disposition home or self-care (01) ==
LOC: EDUNIT# 13:26 → EDBD 13:26 → SED 13:26
DX: S00.83XA Contusion of other part of head, initial encounter (principal); S09.8XXA Other specified injuries of head, initial encounter; S80.01XA Contusion of right knee, initial encounter; S51.011A Laceration without foreign body of right elbow, initial encounter; S51.012A Laceration without foreign body of left elbow, initial encounter; S61.512A Laceration without foreign body of left wrist, initial encounter; W01.198A Fall on same level from slipping, tripping and stumbling with subsequent striking against other object, initial encounter; Y93.01 Activity, walking, marching and hiking; Y92.9 Unspecified place or not applicable; Y99.8 Other external cause status; I25.10 Atherosclerotic heart disease of native coronary artery without angina pectoris; I50.9 Heart failure, unspecified; E78.5 Hyperlipidemia, unspecified; I95.1 Orthostatic hypotension; Z87.891 Personal history of nicotine dependence; Z95.1 Presence of aortocoronary bypass graft; Z88.0 Allergy status to penicillin; Z23 Encounter for immunization

== ENCOUNTER 2017-05-31 18:52 | Inpatient (IN) | payer MEDICARE ==
[~2017-05-31] VITALS: Ht 160 cm; Wt 69.5 kg
[2017-05-31 19:12] VITALS: BP 111/58; PULSE 67; RESP 18; O2SAT 96
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
[2017-05-31 19:26] LABS: BASOPHILS % (AUTO) 0.1 % (0-3); EOSINOPHILS % (AUTO) 1.4 % (0-5); MONOCYTES % (AUTO) 14.4 % (4-12); Mean Corpuscular Hemoglobin 31.4 pg (27.0-35.0); Mean Corpuscular Volume 99.3 fL (81-100); Platelet Count 169 bil/L (150-400)
[2017-05-31] MEDS ORDERED: Nitroglycerin 2% 1 Gm Ointment TOPICAL SCH (19:40)
[2017-05-31 19:49] LABS: TROPONIN T 0.026 ug/L (0.0-0.011)
[2017-05-31 20:00] LABS: Magnesium 2.4 mg/dL (1.6-2.6)
--- NOTE | 2017-05-31 20:28 | DRSVH ---
PROCEDURE: X-RAY CHEST ONE VIEW, PORTABLE ([id number]) INDICATIONS: Chest pain. TECHNIQUE: One view of the chest was acquired. COMPARISON: [facility], CR, XR CHEST 2VW, 07/29/2016, 10:31. [facility], CR , XR CHEST 1VW (PORTABLE), 12/01/2016, 16:06. [facility], CR, XR CHEST 1VW (PORTABLE), , 18:29. FINDINGS: Surgical changes and devices: Sternotomy and CABG. There is a cardiac pacemaker. Lungs and pleura: No pleural effusions or pneumothorax. Mild bilateral interstitial infiltrates comp atible with mild pulmonary edema secondary to CHF. Mediastinum: Mediastinal contours appear normal. Heart size is moderately increased. Bones and chest wall: A 7 mm hyperdensity projecting to the right humeral head is probably within the soft tissue, as it was projected to the right proximal humeral shaft on a prior chest radiograph. O verlying soft tissues appear unremarkable. IMPRESSION: Cardiomegaly and mild CHF. Dictated by: Hugo Mclaughlin M.D. on 05/31/2017 at 20:24 Approved by: Hugo Mclaughlin M.D. on 05/31/2017 at 20:26
[2017-05-31 22:42] LABS: APPEARANCE,URINE SLIGHTLY CLOUDY (CLEAR,HAZY); COLOR,URINE YELLOW (YELLOW); OCCULT BLOOD,URINE NEGATIVE (NEGATIVE); UROBILINOGEN,URINE NORMAL (NORMAL)
[2017-05-31] MEDS ORDERED: Ondansetron 2 mg/mL 2 mL Inj IVPUSH PRN (23:45)
[2017-05-31] MEDS ORDERED: Alum-Mag Hydrox-Simeth 30 mL Suspension PO PRN (23:45)
[2017-06-01] VITALS (11 sets, daily range): BP systolic 101–128; BP diastolic 55–78; PULSE 60–77; RESP 18–24; O2SAT 92–97
[2017-06-01] MEDS ORDERED: Polyethylene Glycol (PEG) 17 Gm Powder PO PRN (00:05)
[2017-06-01] MEDS ORDERED: Ondansetron 2 mg/mL 2 mL Inj IVPUSH PRN (00:05)
[2017-06-01] MEDS ORDERED: Alum-Mag Hydrox-Simeth 30 mL Suspension PO PRN (00:05)
--- NOTE | 2017-06-01 00:40 | PCM.HPMED ---
Subjective Date of Service Jun 01, 2017 Primary Provider: Admitting Physician: Deb Roy DO Primary Care Physician: Ronny Contreras MD Attending Physician: Deb oRy DO Admit Status: From the Emergency Department Chief Complaint: Chest Pain History of Present Illness: Patient is a pleasant 81 y/o female with PMhx of CAD, COPD, pacemaker , Aortic Valve Replacement (currently on Elliquis), and renal insufficiency who presented from assisted living after three days of substernal chest discomfort. Pain is described as a solid sensation that feels "like something is stuck in her chest". Pain is intermittent and can last anywhere from a minute to 5-10 minutes. Patient reports multiple episodes that begin at rest and resolve spontaneously. She states that "I wish I was nauseous so I could throw up, because this seems like it could get rid of this feeling." Patient felt this sensation earlier in the afternoon around 1500 prior to coming to the ED called EMS. EMS gave patient one 325 ASA as well as Nitro x3, which relieved the symptoms. Patient denies any radiation of pain, palpitations, fevers, diaphoresis, headache, N/V/D, ABD pain, SOB, or urinary sxs. Patient had a pacemaker placed in Oct 2015 and Aortic Valve replacement in 2012. Patient's daughter is with patient and states she was seen at Urgent care yesterday for a lower extremity cellulitis that has been ongoing for the past week. Patient was started on PO Clindamycin 300mg and has only had 4 doses. Patient notes LE swelling and pain that is 3/10, and primarily on her LLE. In the ED patient received Nitropaste and remained asymptomatic. Troponin labs increased on repeat labs. Review of Systems: Negative unless otherwise noted above. Allergies Coded Allergies: Penicillins (Verified Allergy, Intermediate, hives, 02/04/17) Home Medications Acyclovir (Acyclovir) 400 Mg Tablet 400 MG PO BID Amiodarone (Amiodarone) 200 Mg Tablet 200 MG PO DAILY Apixaban (Eliquis) 5 Mg Tablet 2.5 MG PO BID Bumetanide (Bumetanide) 1 Mg Tablet 2 MG PO BIDWM Buspirone (Buspirone) 5 Mg Tablet 5 MG PO BID Cholecalciferol (Vitamin D3) (Vitamin D3) 2,000 Unit Tablet 2,000 UNIT PO DAILY Clindamycin (Clindamycin) 300 Mg Capsule 300 MG PO QID Ferrous Gluconate (Ferrous Gluconate) 324 Mg Tablet 324 MG PO BIDWM Fluorometholone (Fluorometholone) 5 Ml Drops.susp 1 DROP RIGHT_EYE BID Fluticasone/Salmeterol (Advair 250-50 Diskus) 60 Puff/Inh Disk 1 PUFF IH BID Ipratropium/Albuterol Sulfate (Iprat-Albut 0.5-3(2.5) mg/3 mL Inhalant Soln) 3 Ml Ampul.neb 3 ML IH QID Montelukast (Montelukast) 10 Mg Tablet 10 MG PO HS Pantoprazole DR (Pantoprazole DR) 20 Mg Tablet.dr 20 MG PO DAILYAC Paroxetine (Paroxetine) 20 Mg Tablet 20 MG PO HS Potassium Chloride (Potassium Chloride) 20 Meq Tab.er.prt 20 MEQ PO DAILY Ropinirole (Ropinirole) 0.25 Mg Tablet 0.25-0.5 MG PO QPM Sennosides (Senna) 8.6 Mg Tablet 17.2 MG PO HS Simvastatin (Simvastatin) 10 Mg Tablet 10 MG PO HS Spironolactone (Spironolactone) 50 Mg Tablet 50 MG PO DAILY Tiotropium [place] (Spiriva) 18 Mcg Cap.w.dev 2 PUFFS IH DAILY Vit C/E/Zn/Coppr/Lutein/Zeaxan (Preservision Areds 2 Softgel) 1 Each Capsule 1 EACH PO BID Scheduled PRN Acetaminophen (Acetaminophen) 325 Mg Tablet 325 MG PO Q4H PRN PRN For Fever Carboxymethylcellulos/Glycerin (Refresh Optive Eye Drops) 15 Ml Drops 1 DROP BOTH_EYES Q2H PRN PRN DRY EYES Glycerin (Suppository) 1 Each Supp.rect 1 EACH RC DAILY PRN PRN HEMMORRHIDAL TX Nitroglycerin SL (Nitrostat) 0.4 Mg Tab.subl 0.4 MG SL Q5MIN PRN PRN For Chest Pain Polyethylene Glycol 3350 (Miralax) 17 Gm Powd.pack 17 GM PO DAILY PRN PRN For Constipation diphenhydrAMINE HCl (Unisom Sleepmelts) 25 Mg Tab.rapdis 50 MG PO Q4H PRN PRN For Itching PMH Ischemic cardiomyopathy aortic valve replacement 2012 coronary artery disease Congestive heart failure - Last echo 07/23/2015 EF 23% left bundle branch block DVT Orthostatic hypotension COPD Hyperlipidemia Lower extremity length discrepancy Renal insufficiency Corneal abrasion Depression with anxiety Insomnia Osteoarthritis Osteopenia Surgical History Pacemaker in October 2015 Aortic vave replacement 2013 Right knee replacement CABG x1 Family History Cancer in Father CAD in Father DMT2 in Maternal Aunt Social History Hx Alcohol Use: No Hx Substance Use: No Smoking Status: Former Smoker Living Arrangement: Assisted Living Exam Vital Signs Vital Sign - Last Date Time Temp Pulse Resp B/P Pulse Ox O2 Delivery O2 Flow Rate FiO2 06/01/17 00:19 37.1 68 18 128/78 96 Room Air Exam Constitutional: Awake, alert, and oriented x3. No acute distress Head: Normocephalic and atraumatic Eyes: pupils equal round and reactive to light, no scleral icterus Mouth: no posterior oropharynx erythema, uvula nonswollen Heart: 2/6 systolic murmur on right sternal border, regular rate and rhythm. no rubs or gallops. Trace bilateral LE edema. Lungs: clear to auscultation bilaterally, no wheeze, rales, or rhonchi ABD: soft, nontender, bowel sounds present throughout Musculoskeletal: moves all four extremities appropriately, 5/5 strength in bilat UE and LE Skin: diffuse ecchymoses on bilateral UE from chronic anticoagulation, mild erythema on bilateral LE, more prominent on LLE. Warm, dry Neuro: no focal deficits. CN II-XII intact. Psych: appropriate mood and affect. Lab and Diagnostics Labs Item Value Date Time Red Blood Count 3.06 mil/mm3 L 05/31/171921 Mean Corpuscular Hemoglobin 31.4 pg 05/31/171921 Mean Corpuscular Volume 99.3 fL 05/31/171921 Mean Corpuscular Hemoglobin Concent 31.6 % L 05/31/171921 Platelet Count 169 presley/L 05/31/171921 Red Cell Distribution Width 16.6 % H 05/31/171921 Neutrophils (%) (Auto) 74.0 % 05/31/171921 Lymphocytes (%) (Auto) 9.8 % L 05/31/171921 Monocytes (%) (Auto) 14.4 % H 05/31/171921 Eosinophils (%) (Auto) 1.4 % 05/31/171921 Basophils (%) (Auto) 0.1 % 05/31/171921 Estimat Glomerular Filtration Rate 26 mL/min 05/31/171921 Calcium Level 9.2 mg/dL 05/31/171921 Magnesium Level 2.4 mg/dL 05/31/171921 Total Bilirubin 0.6 mg/dL 05/31/171921 Aspartate Amino Transf (AST/SGOT) 17 U/L 05/31/171921 Alanine Aminotransferase (ALT/SGPT) 14 U/L 05/31/171921 Alkaline Phosphatase 95 U/L 05/31/171921 Troponin T 0.026 ug/L H 05/31/171921 Troponin T 0.039 ug/L *H 05/31/172214 Total Protein 7.2 g/dL 05/31/171921 Albumin 4.0 g/dL 05/31/171921 Result Diagram: 05/31/17192105/31/171921 Microbiology Urine Culture pending X-Rays, CTs and MRIs PROCEDURE: X-RAY CHEST ONE VIEW, PORTABLE IMPRESSION: Cardiomegaly and mild CHF. Dictated by: Hugo Mclaguhlin M.D. on 05/31/2017 at 20:24 12-lead ECG Paced rhythm: HR 62 Assessment & Plan Patient is a pleasant 81 y/o female with PMhx of CAD, COPD, pacemaker , Aortic Valve Replacement (currently on Elliquis), and renal insufficiency who presented from assisted living after three days of substernal chest discomfort. Pain is described as a solid sensation that feels "like something is stuck in her chest". - Acute NSTEMI, POA, Stable, Active - Patient presented with chest pain that resolved with Nitro and ASA, with elevated troponins - Trend troponin Q6 - Consult Cardiology, appreciate their recommendations. ED spoke with cardio prior to admission, will medically manage as pt is not strong candidate for cath due to renal function. Will hold on heparin anticoagulation and continue ASA management. - Start Metoprolol tartrate 25mg PO daily, adjust per cardiology recommendations - Consider Lisinopril 5mg PO daily, holding at this time due to current renal function. adjust per cardiology recommendations - Nitro PRN - Supplemental O2 if pt O2sat falls below <90% - Morphine 1mg IV PRN pain - Lipid panel in AM - Chronic Systolic Heart Failure with Diminished Ejection Fraction (20-25%), Active - Echo from 06/28/[address] Smith showed mild dilation in LV with EF 20-25% with moderate mitral regurgitation - Repeat Echo in AM - Patient tolerating PO liquids in ED - Limit IVF - Acute on Chronic Kidney Disease, POA, Active, Stable - Patient has h/o renal insufficiency, SCr on admission 2.54 with questionable baseline around 2.1 from November 2016 - Monitor I&O - Repeat CMP in AM - Avoid contrast until renal status can be determined with management of cardiac function - Cellulitis of bilateral LE, POA, Stable, Active - Patient was started on Clindamycin 300mg PO QID the day before admission, patient has only received 4 doses - Continue Clindamycin PO dose - Add probiotics to prevent infectious diarrhea -History of COPD, Stable - Continue home regimen of Advair - Continue home regimen of Iprat-Albut - History of Dyslipidemia, Stable - Continue home dose of Simvastatin 10mg PO daily Patient is admitted under inpatient status expected length of stay greater than 2 midnights due to severity of presenting symptoms, risk of adverse events, and complexity of treatment plan. Patient is DNR/DNI Pain Evaluation: Adequate Pain Control GI Prophylaxis: H2 deena VTE Prophylaxis: SCD VTE Mechanical Devices: Intermittant Pneumatic CD Resuscitation Status: DNR/DNI Pain Evaluation: Adequate Pain Control GI Prophylaxis: H2 deena VTE Prophylaxis Indicated: Contraindicated VTE Prophylaxis: SCDs Resuscitation Status: DNR/DNI:Do Not Resuscitate/Intubate Attending Statement The patient was seen and examined together with house staff on 06/01/2017 and I agree with the history, exam and plan as outlined in the note above. Nir Li DO Jun 01, 2017 00:40 Deb Roy DO Jun 01, 2017 05:03
[2017-06-01] MEDS ORDERED: ADV250INH IH (01:14)
[2017-06-01] MEDS ORDERED: POLY1DRO BOTH_EYES (01:14)
[2017-06-01] MEDS ORDERED: TIOT18CA3 IH (01:14)
[2017-06-01] MEDS ORDERED: HYDR-4003 PO (01:14)
[2017-06-01] MEDS ORDERED: [UNRECOGNIZED DRUG - CODE] PR (01:14)
--- NOTE | 2017-06-01 01:27 | NUR ---
Admit Patient arrived at 0015 from ED, accompanied by daughter. Alert and oriented. Updated on plan of care, hospital policies, intentional rounding, call light use. Bed alarm on for safety. Property waiver signed and placed in chart. Med list entered per patient's list, printed 05/30/17. Patient is NPO. Telemetry connected. IV patent.
[2017-06-01] MEDS ORDERED: Artificial Tears 15 mL Ophthalmic Solution BOTH_EYES PRN (01:40)
[2017-06-01] MEDS: Albuterol-Ipratropium 3 mL Inhalation Solution NEB SCH ×4 (06:30→20:24)
[2017-06-01 06:35] LABS: BASOPHILS % (AUTO) 0.1 % (0-3); EOSINOPHILS % (AUTO) 1.6 % (0-5); MONOCYTES % (AUTO) 14.1 % (4-12); Mean Corpuscular Hemoglobin 31.6 pg (27.0-35.0); NEUTROPHILS % (AUTO) 73.2 % (40-74); Platelet Count 141 bil/L (150-400)
[2017-06-01] MEDS: Fluticasone-Salmererol 250-50 Inhaler INHALATION SCH ×2 (08:30→21:01)
[2017-06-01] MEDS: BusPIRone 15 mg Dividose Tablet PO SCH ×2 (08:32→21:02)
[2017-06-01] MEDS: Pantoprazole 20 mg ER24 Tablet PO SCH ×2 (08:33→21:04)
[2017-06-01] MEDS: Acyclovir 400 mg Tablet PO SCH ×2 (08:34→21:05)
--- NOTE | 2017-06-01 09:13 | PCM.PNMED ---
Subjective Date of Service Jun 01, 2017 Subjective Patient has no chest pain overnight. She says it was substernal, intermittent and not radiating, not changing with activity. She says it had no relation to eating. Not tachycardic, no palpitations., She does become dyspneic at times. Constipated as she has not had a BM in several days. No other concerns Exam Vital Signs Vital Sign - Last Date Time Temp Pulse Resp B/P Pulse Ox O2 Delivery O2 Flow Rate FiO2 06/01/17 06:03 61 06/01/17 05:31 36.4 18 101/58 96 Room Air Intake and Output 05/31/17 05/31/17 06/01/17 Cumulative From/Thru 14:59 22:59 06:59 05/31/17 19:12 - 06/01/17 05:36 Intake Total 100 ml 100 ml Output Total 380 ml 380 ml Balance -280 ml -280 ml Intake Oral 100 ml 100 ml Output Urine Total 380 ml 380 ml Exam General: Laying in bed, NAD HEENT: NCAT Heart: regular, paced rythm, no murmurs Lungs: CTA, no crackles or wheezes Abd: Soft, NT/ND, normal bowel sounds NEck: Mild JVD, B/L Ext: Left ext is more swollen than R, states that is her baseline Vascular: Palpable pedal pulse Neuro: No focal deficits Psych: No anxiety or agitation IVs and Medications Medications Reviewed: Medications were reviewed in detail Lab and Diagnostics Result Diagram: 06/01/17 0500 05/31/172 Microbiology Urine Culture pending X-Rays, CTs and MRIs PROCEDURE: X-RAY CHEST ONE VIEW, PORTABLE IMPRESSION: Cardiomegaly and mild CHF. Dictated by: Hugo Mclaughlin M.D. on 05/31/2017 at 20:24 12-lead ECG Paced rhythm: HR 62 Assessment & Plan Patient is a pleasant 81 y/o female with PMhx of CAD, COPD, pacemaker , Aortic Valve Replacement (currently on Elliquis), and renal insufficiency who presented from assisted living after three days of substernal chest discomfort. Pain is described as a solid sensation that feels "like something is stuck in her chest". - Acute NSTEMI, POA, Stable, Active - Patient presented with chest pain that resolved with Nitro and ASA, with elevated troponins - Trend troponin Q6 - Consult Cardiology, appreciate their recommendations. ED spoke with cardio prior to admission, will medically manage as pt is not strong candidate for cath due to renal function. Will hold on heparin anticoagulation and continue ASA management. - Start Metoprolol tartrate 25mg PO daily, adjust per cardiology recommendations - Consider Lisinopril 5mg PO daily, holding at this time due to current renal function. adjust per cardiology recommendations - Nitro PRN - Supplemental O2 if pt O2sat falls below <90% - Morphine 1mg IV PRN pain - Lipid panel in AM -- PAin resolved. Troponin elevation: 0.026->0.039->0.029, could be due to renal disease as well -- [facility] has seen the patient, they feel that her pacemaker should be paced biventricular, they will arrange for interrogation Acute on chronic Chronic Systolic Heart Failure, present on admission -- Elevated troponin secondary to mild CHF as evidenced by her chest x-ray - Echo from 06/28/[address] Smith showed mild dilation in LV with EF 20-25% with moderate mitral regurgitation -- Cardiology is consulted, Dr. Warner has seen the patient -- Recommends treating the CHF with 0.5-1 mg Bumex IV -- Recommends pacemaker check as patient is supposed to be biventricular. Paced , EKG indicates only one-sided ventricular pacing. - Acute on Chronic Kidney Disease, POA, Active, Stable - Patient has h/o renal insufficiency, SCr on admission 2.54 with questionable baseline around 2.1 from November 2016 - Monitor I&O - Repeat CMP in AM - Avoid contrast until renal status can be determined with management of cardiac function - Cellulitis of bilateral LE, POA, Stable, Active -- Patient's lower extremities. Almost cleared, patient states that she had cellulitic changes earlier at her intermediate - Patient was started on Clindamycin 300mg PO QID the day before admission, patient has only received 4 doses - We will switch her to doxycycline and prevent C. difficile - Add probiotics to prevent infectious diarrhea -History of COPD, Stable - Continue home regimen of Advair - Continue home regimen of Iprat-Albut - History of Dyslipidemia, Stable - Continue home dose of Simvastatin 10mg PO daily Patient is admitted under inpatient status expected length of stay greater than 2 midnights due to severity of presenting symptoms, risk of adverse events, and complexity of treatment plan. Patient is DNR/DNI Pain Evaluation: Adequate Pain Control GI Prophylaxis: H2 deena VTE Prophylaxis: SCD VTE Mechanical Devices: Intermittant Pneumatic CD Resuscitation Status: DNR/DNI GI Prophylaxis: H2 deena VTE Prophylaxis: SCDs Resuscitation Status: DNR/DNI:Do Not Resuscitate/Intubate Time spent 25 min Karin Maki DO Jun 01, 2017 07:43 Resuscitation Status: DNR/DNI:Do Not Resuscitate/Intubate Time spent 25 min Karin Maki DO Jun 01, 2017 07:43
--- NOTE | 2017-06-01 10:05 | CONS ---
[address] [address] CONSULTATION REPORT PATIENT: YVETTE WATKINS : 1935 MR#: [id number] ADMIT: 05/31/2017 JOB ID: [id number] DATE OF SERVICE: 06/01/2017 CARDIOLOGY CONSULT NOTE: CHIEF COMPLAINT: I was asked by the hospitalist to consult on this patient. She has an elevated troponin. HISTORY OF PRESENT ILLNESS: The patient is an 81-year-old woman who has a history of coronary artery disease, COPD, cardiomyopathy, atrial fibrillation on amiodarone, renal insufficiency and aortic valve replacement. She has been admitted in the past with problems with heart failure. More recently, she has been noticing intermittent episodes of chest discomfort. It feels like something is stuck in her chest. No associated nausea, vomiting, diaphoresis, palpitations, presyncope, or syncope. Because of this, she was given aspirin by EMS and nitroglycerin, which apparently relieved the symptoms. At present she is doing well. She is in bed. She says she never lies flat. She denies increased swelling of her legs and she denies chest pressure or heaviness at this time. PAST MEDICAL HISTORY/PROBLEM LIST: 1. History of ischemic cardiomyopathy. EF in the range of 23%. 2. Aortic valve replacement in 2012. 3. Coronary artery disease. 4. COPD. 5. Renal insufficiency. 6. History of a BiV ICD. 7. History of atrial fibrillation, on amiodarone for this. MEDICATIONS AT HOME: Include: 1. Acyclovir. 2. Eliquis 2.5 mg b.i.d. 3. Bumex 1 tablet b.i.d. 4. Buspirone. 5. Clindamycin 300 mg q.i.d. (I am not sure the indication for this). 6. Ferrous gluconate. 7. Singulair. 8. Paxil. 9. Ropinirole. 10. Simvastatin, a very low-dose, 10 mg daily. ALLERGIES: PENICILLIN. SOCIAL HISTORY: Former smoker. No alcohol. FAMILY HISTORY: No early coronary artery disease. REVIEW OF SYSTEMS: Overall health: No fevers, chills, night sweats, or weight loss. GI: Denies any problems with ulcers or blood in stool. No nausea or vomiting. : No dysuria or hematuria. Pulmonary: No increased shortness of breath. Cardiac: As per HPI. Derm: Bruising but no new rashes or skin breakdown. Neuro: No chronic headaches. Endocrine: No heat or cold intolerance. Musculoskeletal: No acute joint issues. All review of systems of a 12-point review of system are negative. PHYSICAL EXAMINATION: Blood pressure is 101/58. She is afebrile. Sats are 96% on room air. Heart rate 62. General: In no acute distress. Speaking in full sentences without apparent shortness of breath. Head and neck exam: Normocephalic, atraumatic. JV distention somewhat difficult to appreciate. Heart exam: Distant sounds. Regular with a systolic murmur. Lungs: Anteriorly sound clear. Abdomen: Soft, nontender. Skin: Diffuse ecchymoses. Neuro: Alert and interactive. Psych: Appropriate mood and affect. Extremities: Warm. Left greater than right swelling which she says is chronic but no increased edema per her report. 1+ DP pulses appreciated. Back: No CVA tenderness to palpation. Ophtho: Vision grossly intact. ENT: Mucous membranes moist. No change in hearing. CURRENT MEDICATIONS: Include: 1. Metoprolol 25 b.i.d. 2. Amiodarone 200 daily. 3. Bumex 1 mg b.i.d. 4. Acyclovir. 5. Pantoprazole. 6. Eliquis 2.5 b.i.d. 7. Spironolactone 50 daily. 8. Buspirone 5 daily. 9. Clindamycin 300 q.i.d. 10. Ropinirole. 11. Lipitor 5 mg q.h.s. 12. Singulair. 13. Albuterol. 14. Ipratropium nebs. LABORATORIES: Show a white count of 6.7, H and H of 9.3 and 29.1 (stable), platelets 141,000. Chemistry shows a sodium 136, potassium 3.9, chloride and bicarb of 94 and 22, respectively, BUN and creatinine of 53 and 2.54. Troponin 0.026, up to 0.039, down to 0.029 again. Chest x-ray is read as cardiomegaly and mild CHF. EKG to my review shows probable atrial pacing, and appears to be right ventricular sensing. I do not see a typical pattern for BiV pacing. I am not able at this station to review her x-ray findings but will do so. IMPRESSION: The patient came in with intermittent chest discomfort. This may be related to increased filling pressures. Troponins have trended up, now down into the indeterminate range. PLAN: 1. We are going interrogate her pacer to see if her left ventricular lead is functioning or what has been going on in the interim, possibly atrial fibrillation to make her feel poorly at this time. 2. My suspicion is that increased filling pressures (given known CM) contributed to her symptoms. I would advise an IV dose of diuretic. TIME SPENT: I spent 35 minutes with reviewing the patient's information, speaking to the patient, reviewing old notes. CHANEL
[2017-06-01] MEDS ORDERED: Bumetanide 0.25 mg/mL 4 mL Inj IV ONE (11:40)
--- NOTE | 2017-06-01 12:37 | NUR ---
Social Work-initial assessment/ readiness for discharge: Data:See initial assessment. Pt is a 81 y/o female who was admitted on 05/31/17 for N stemi per H&P. Pt's insurance is [employer] and PCP is Ronny Contreras MD. EMR reviewed. ROSA met with pt at bedside, SW role explained. Pt is alert and oriented. Pt confirms she lives at [facility] where she remains independent with basic ADLs. Pt uses a fww at baseline and does not drive. Pt has no HH or SNF history. Pt has no care home care insurance or VA benefits. SW discussed DPOA/ advanced directive, pt confirms this has been completed, SW encouraged a copy to be brought in. Pt confirms her daughter will provide transport home at discharge. SW provided pt with discharge planning checklist booklet and encouraged her to call with any questions,phone number place on white board in room. ROSA placed a call to [facility] to Speak with Josi who is not currently in the building. Message left. ROSA faxed updated clinicals to [phone] for review. SW to determine with Josi if pt will need re-assessment prior to discharge. SW will continue to follow. Assessment:Pt who [facility]. Plan:Pt to discharge back to [facility] when medically stable. Updated clinicals have been faxed to [facility], awaiting a return call from facility to determine if they need to re-assess pt prior to return. ROSA will continue to follow. PHIL Berrios Addendum: 06/01/17 at 1242 by AIMEE VALENZUELA Amended: Links added. Addendum: 06/01/17 at 1416 by AIMEE MEDINA SS ROSA spoke with Josi from [facility] who confirms they can accept pt back whenever medically stable without a bedside assessment, ROSA will just need to notify them at discharge and fax orders. ROSA will continue to follow. Aimee eMdina,PHIL
[2017-06-01] MEDS ORDERED: 0.9% Sodium Chloride 100 ML ONE (18:44)
--- NOTE | 2017-06-01 19:36 | NUR ---
shift note Pt denied any cp during shift. Ambulated to bathroom SBA w/FWW. VS WNL. Family at bedside. Pt was alert and oriented to self but was not able to state where she was or what year it was. Pt did answer most questions appropriately
[2017-06-01] MEDS: PARoxetine 20 mg Tablet PO SCH (21:05)
[2017-06-02] VITALS (10 sets, daily range): BP systolic 93–110; BP diastolic 55–68; PULSE 48–66; RESP 14–20; O2SAT 90–96
--- NOTE | 2017-06-02 05:39 | NUR ---
Assumed care Patient denied any CP, SOB, and abdominal discomfort at this time. Able to transfer with SBA to BSC. Bed in low position, call light within reach, lights on in room, and frequent rounding.
[2017-06-02] MEDS: Albuterol-Ipratropium 3 mL Inhalation Solution NEB SCH ×4 (06:30→20:38)
--- NOTE | 2017-06-02 08:56 | DRSVH ---
[facility] [address] [place] [address] Echocardiogram Report Name: YVETTE WATKINS Study Date: 06/01/2017 Height: 6 3 in Hospital Exam Location: [facility] Weight: 1 59 lb Gender: Female BSA: 1.8 m2 : 1935 Age: 81 yrs BP: 101/5 8 mmHg Reason For Study: CHEST PAIN Ordering Physician: HOSPITALIST [facility] Performed By: Shivani Hilario Referring Physician: Gurmeet Galvez Interpretation Summary Left ventricular systolic function is severely reduced with the ejection fraction estimated to be 20-25% with severe global hypokinesis and an apical wall motion abnormality likely reflecting pacemaker activation but no other obvious focal wall motion abnormalities. Left ventricular systolic function appears slightly worse compared to the previous study. The left ventricle is mildly dilated and diastolic parameters indicate a restrictive filling pattern of the left ventricle consistent with significantly elevated filling pressures but likely unchanged compared to the previous study. The right ventricle is mildly dilated and right ventricular systolic function is borderline reduced and appears slightly less dynamic compared to the previous study. The right ventricular systolic pressure is estimated at least 58 mmHg assuming a right atrial pressure of 15 mm Hg, and is likely similar to the previous study. There is severe biatrial enlargement but grossly unchanged compared to the previous study. There is moderate to severe mitral annular calcification with probable moderate to severe mitral regurgitation that appears more prominent compared to the previous study. 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 The aortic valve mean gradient is 17 mmHg. There is severe tricuspid regurgitation that is significantly worse compared to the previous study. There is mild to moderate pulmonic regurgitation. This was not well imaged on the previous study. The aortic arch is at the upper limits of normal in size. Procedure: A two-dimensional transthoracic echocardiogram with color flow and Doppler was performed. The study quality was technically adequate. Comparison is made with the echocardiogram of 06/28/16. The patient has a paced rhythm. Left Ventricle: The left ventricle is mildly dilated. There is normal left ventricular wall thickness. There has been no significant change since the previous study. Left ventricular systolic function is severely reduced. The ejection fraction is estimated to be 20-25%. There is severe global hypokinesis of the left ventricle. Apical wall motion abnormality may reflect pacemaker activation. There are no other obvious focal wall motion abnormalities. This is slightly worse compared to the previous study. Assessment of diastolic parameters indicates a restrictive filling pattern of the left ventricle consistent with significantly elevated filling pressures. This is unchanged compared to the previous study. Right Ventricle: There is a pacemaker lead in the right ventricle. The right ventricle is mildly dilated. Right ventricular systolic function is borderline reduced. This is slightly less dynamic compared to the previous study. Atria: There is severe biatrial enlargement. There is a catheter/pacemaker lead seen in the right atrium. This is unchanged compared to the previous study. There is no Doppler evidence for an interatrial shunt. Mitral Valve: There is moderate to severe mitral annular calcification. The mitral valve leaflets appear borderline thickened, but open well. No significant mitral valve stenosis. There is moderate to severe mitral regurgitation. This is more prominent compared to the previous study. Aortic Valve: There is a bioprosthetic aortic valve. Bioprosthetic leaflets are not well visualized. The prosthetic aortic valve is well-seated. There is mild aortic stenosis. This is unchanged compared to the previous study. The peak aortic velocity is 2.8 m/sec. The peak aortic velocity on the previous exam was 3.9 m/sec. The aortic valve mean gradient is 17 mmHg. No aortic regurgitation is present. Tricuspid Valve: The tricuspid valve is normal. There is severe tricuspid regurgitation. This is significantly worse compared to the previous study. The right ventricular systolic pressure is estimated at least 58 mmHg assuming a right atrial pressure of 15 mm Hg. This is unchanged compared to the previous study. Pulmonic Valve: The pulmonic valve leaflets are thin and pliable; valve motion is normal. There is mild to moderate pulmonic regurgitation. Great Vessels: The aortic root is not well visualized. The ascending aorta could not be visualized. The aortic arch is at the upper limits of normal in size. The pulmonary is not well visualized. The IVC is dilated (diameter is greater than 2.1 cm) and it collapses less than 50% with a sniff. This suggests a high right atrial pressure of 15 mm Hg. Pericardium/ Pleura There is no pericardial effusion. There is no pleural effusion. MMode/2D Measurements & Calculations LVIDd: 5.3 cm LVIDs: 4.6 cm LA A2 area: 26.3 cm FS: 14.2 % LA A4 area: 29.9 cm IVSd: 0.82 cm LA length (vol): 6.0 cm LVPWd: 1.0 cm LA vol: 110.4 ml LA vol index: 63.0 ml/m IVC diam: 2.8 cm RA long axis: 6.3 cm Ao Arch Diam (Prox Trans): 3.1 cm RA area: 27.2 cm RA vol: 99.6 ml RA : 56.8 ml/m2 EDV(MOD-sp2): 163.9 ml LV robbins. diameter/BSA (cm/m^2): 3.0 ESV(MOD-sp2): 126.3 ml EF(MOD-sp2): 23.0 % LV sys. diameter/BSA (cm/m^2): 2.6 RVD1 (basal): 5.9 cm RVD2 (mid): 3.3 cm TAPSE: 1.7 cm Doppler Measurements & Calculations Ao V2 max: 277.1 cm/sec MV E max obed: 136.3 cm/sec Ao max P.7 mmHg MV A max obed: 52.2 cm/sec Ao mean P.6 mmHg MV P1/2t: 63.7 msec LVOT Max Obed: 90.4 cm/sec MR ERO: 0.22 cm2 sev ratio: 0.32 MV E/A: 2.6 TR max obed: 327.4 cm/sec Med Peak E' Obed: 3.6 cm/sec TR max P.9 mmHg E/E' med: 37.4 PA V2 max: 70.4 cm/sec Lat Peak E' Obed: 2.8 cm/sec PA mean P.77 mmHg E/E' lat: 49.4 E/e' average: 43.4 MV V2 mean: 69.9 cm/sec MV P1/2t max obed: 136.7 cm/sec MV mean P.5 mmHg MVA(P1/2t): 3.5 cm2 MV V2 VTI: 36.1 cm MV dec time: 0.23 sec Ao V2 mean: 189.4 cm/sec LV V1 max P.3 mmHg Ao V2 VTI: 62.5 cm LV V1 VTI: 20.1 cm MR flow rate: 106.2 cm3/sec PA V2 mean: 39.7 cm/sec MR PISA radius: 0.96 cm PA pr(Accel): 53.3 mmHg Reading Physician:08:55 AM
[2017-06-02] MEDS: Fluticasone-Salmererol 250-50 Inhaler INHALATION SCH ×2 (09:05→23:52)
[2017-06-02] MEDS: Acyclovir 400 mg Tablet PO SCH ×2 (09:06→21:26)
[2017-06-02] MEDS: Pantoprazole 20 mg ER24 Tablet PO SCH ×2 (09:07→21:29)
[2017-06-02] MEDS: BusPIRone 15 mg Dividose Tablet PO SCH ×2 (09:07→21:27)
--- NOTE | 2017-06-02 12:28 | PROG NOTE ---
[address] [address] PROGRESS NOTE PATIENT: YVETTE WATKINS : 1935 MR#: [id number] ADMIT: 05/31/2017 JOB ID: [id number] DATE: 06/02/2017 CARDIOLOGY PROGRESS NOTE: CHIEF COMPLAINT: The patient came in with chest discomfort, which I suspect is related to increased filling pressures. She had a mildly elevated troponin, which went down to the indeterminate range. She has a very high proBNP, and she has a known cardiomyopathy, as well as renal insufficiency. She was given a small dose of IV Bumex which diuresed a couple of liters off of her. Blood pressure is a little low today, although she did receive her Bumex. Spironolactone has been held, as was metoprolol dose, although she was given amiodarone. SUBJECTIVE: She says she is feeling well. She feels like she could go home. She has gotten up and walked and had no problems with lightheadedness or dizziness, although she is scheduled to work with PT as well. She denies chest pain, chest pressure, or increased shortness of breath. PHYSICAL EXAMINATION: Blood pressure was 110/68 early this morning, now 93/56. Heart rate 60, sats are 94% on room air. General: In no acute distress. Speaking in full sentences without shortness of breath. Head and neck exam: Normocephalic, atraumatic. Heart exam: Sounds regular but distant. With a systolic murmur. Lungs: Sound clear. No wheezes or crackles appreciated. Extremities: Warm. LABORATORIES: Show sodium 137, potassium 2.8, chloride and bicarb of 98 and 22, respectively. BUN and creatinine of 49 and 2.3, which is actually improved since admission, again arguing for the diagnosis of heart failure. Hematology shows a white count 6.7, H and H of 9.3 and 29.1, platelets 141,000. IMAGING: No additional imaging. CURRENT MEDICATIONS: Include amiodarone, aspirin, pantoprazole, buspirone, Bumex which she takes orally, Eliquis, ropinirole, Singulair, atorvastatin. She is on metoprolol, which was held today. OTHER STUDIES: Show an echocardiogram that shows an EF of 20% to 25%, unlikely changed. All findings similar. IMPRESSION: The patient is doing better today. I suspect her symptoms were due to increased filling pressures associated with heart failure. She responded to intravenous diuretic with a brisk loss of fluid. Creatinine has actually improved with diuresis. Her blood pressure is a little low today but it does tend to run low. We have held her metoprolol and spironolactone. PLAN: 1. I would get the patient up and walking around with PT, although she says she is able to walk by herself without problems. We just want to make sure she is not lightheaded with the blood pressures. 2. I would like to see her blood pressure above 100 before discharge. She is fairly close to this.
[2017-06-02] MEDS ORDERED: Bumetanide 0.25 mg/mL 4 mL Inj IV ONE (14:45)
--- NOTE | 2017-06-02 18:34 | NUR ---
respiratory pt. sob early this afternoon; RA sats 88-89%; RT called, Neb tx given; aware; Bumex 0.5mg IV x1 given. Pt. resting comfortably this evening in bed, RA sats mid 90's; denies sob at rest.
[2017-06-02] MEDS: PARoxetine 20 mg Tablet PO SCH (21:29)
--- NOTE | 2017-06-02 21:54 | PCM.PNMED ---
Subjective Date of Service Jun 02, 2017 Subjective Patient is seen and examined, appears mildly dyspneic. Moving legs due to restless legs, daughter is present in the room was updated on patient's plan of care. No other concerns Exam Vital Signs Vital Sign - Last Date Time Temp Pulse Resp B/P Pulse Ox O2 Delivery O2 Flow Rate FiO2 06/02/17 20:41 60 14 96 Room Air 06/02/17 20:30 36.4 102/55 Intake and Output 06/01/17 06/01/17 06/02/17 Cumulative From/Thru 15:00 23:00 07:00 05/31/17 19:12 - 06/02/17 06:48 Intake Total 1346 ml 300 ml 1746 ml Output Total 1100 ml 950 ml 2430 ml Balance 246 ml -650 ml -684 ml Intake Oral 1346 ml 300 ml 1746 ml Output Urine Total 1100 ml 950 ml 2430 ml # Bowel Movements 1 1 Exam General: Laying in bed, NAD HEENT: NCAT Heart: regular, paced rythm, no murmurs Lungs: CTA, no crackles or wheezes Abd: Soft, NT/ND, normal bowel sounds NEck: Mild JVD, B/L Ext: Left ext is more swollen than R, states that is her baseline Vascular: Palpable pedal pulse Neuro: No focal deficits Psych: No anxiety or agitation IVs and Medications Medications Reviewed: Medications were reviewed in detail Lab and Diagnostics Result Diagram: 06/01/17 0500 06/02/17 1643 Microbiology Urine Culture pending X-Rays, CTs and MRIs PROCEDURE: X-RAY CHEST ONE VIEW, PORTABLE IMPRESSION: Cardiomegaly and mild CHF. Dictated by: Hugo Mclaughlin M.D. on 05/31/2017 at 20:24 12-lead ECG Paced rhythm: HR 62 Assessment & Plan Patient is a pleasant 81 y/o female with PMhx of CAD, COPD, pacemaker , Aortic Valve Replacement (currently on Elliquis), and renal insufficiency who presented from assisted living after three days of substernal chest discomfort. Pain is described as a solid sensation that feels "like something is stuck in her chest". - Acute chest pain present on admission, resolved - Patient presented with chest pain that resolved with Nitro and ASA, with elevated troponins - Trend troponin Q6 - Consult Cardiology, appreciate their recommendations. ED spoke with cardio prior to admission, will medically manage as pt is not strong candidate for cath due to renal function. Will hold on heparin anticoagulation and continue ASA management. - Start Metoprolol tartrate 25mg PO daily, adjust per cardiology recommendations - Consider Lisinopril 5mg PO daily, holding at this time due to current renal function. adjust per cardiology recommendations - Nitro PRN - Supplemental O2 if pt O2sat falls below <90% - Morphine 1mg IV PRN pain - Lipid panel his ordered and reviewed- no changes to statin at this time Elevated troponins, present on admission active -Troponin elevation: 0.026->0.039->0.029, secondary to heart failure as evidenced by the chest x-ray and patient's presentation. could be due to renal disease as well -Cardiology has seen the patient, they feel that her pacemaker should be paced biventricular, pacemaker is functioning appropriately Acute on chronic Chronic Systolic Heart Failure, present on admission -- Elevated troponin secondary to mild CHF as evidenced by her chest x-ray - Echo from 06/28/[address] Smith showed mild dilation in LV with EF 20-25% with moderate mitral regurgitation -- Cardiology is consulted, Dr. Warner has seen the patient -- Recommends treating the CHF with 0.5-1 mg Bumex IV, a second dose was given on 06/02, continue home Bumex -- Pacemaker is functioning as expected per cardiology - Acute on Chronic Kidney Disease, POA, Active, Stable - Patient has h/o renal insufficiency, SCr on admission 2.54 with questionable baseline around 2.1 from November 2016 - Monitor I&O - Repeat CMP in AM - Avoid contrast until renal status can be determined with management of cardiac function - Cellulitis of bilateral LE, POA, Stable, Active -- Patient's lower extremities. Almost cleared, patient states that she had cellulitic changes earlier at her [facility] - Patient was started on Clindamycin 300mg PO QID the day before admission, patient has only received 4 doses - We will switch her to doxycycline and prevent C. difficile - Add probiotics to prevent infectious diarrhea -History of COPD, Stable - Continue home regimen of Advair - Continue home regimen of Iprat-Albut - History of Dyslipidemia, Stable - Continue home dose of Simvastatin 10mg PO daily Patient is admitted under inpatient status expected length of stay greater than 2 midnights due to severity of presenting symptoms, risk of adverse events, and complexity of treatment plan. I discussed medication: Morphine Patient is DNR/DNI Pain Evaluation: Adequate Pain Control GI Prophylaxis: H2 deena VTE Prophylaxis: SCD VTE Mechanical Devices: Intermittant Pneumatic CD Resuscitation Status: DNR/DNI GI Prophylaxis: H2 deena VTE Prophylaxis: SCDs Resuscitation Status: DNR/DNI:Do Not Resuscitate/Intubate Time spent 25 minutes Karin Maki DO Jun 02, 2017 21:54
[2017-06-03] VITALS (9 sets, daily range): BP systolic 92–107; BP diastolic 50–61; PULSE 55–72; RESP 18–22; O2SAT 90–96
--- NOTE | 2017-06-03 05:21 | NUR ---
Fall Patient was alert and oriented x3 all shift, she called appropriately and was able to communicate needs. Brooks risk 45 at beginning of shift. Around 3am patient pulled bathroom call light, was found sitting on the floor facing bathroom rail. Patient reported she could not remember how she fell. On assessment she was alert and oriented x4, denied pain on moving all extremities. Denied having hit the head, no bruises or swelling noted on the head. All vital signs were stable. Patient helped up and was able to walk using FWW back to bed. Pose bed alarm placed and fall risk sign put in the room. Patient has denied chest pain or SOB all shift,she tool sleeping meds and was able to sleep on and off through the night.
[2017-06-03] MEDS ORDERED: DOXY100C2 PO (07:48)
[2017-06-03] MEDS: Pantoprazole 20 mg ER24 Tablet PO SCH (08:02)
[2017-06-03] MEDS: Fluticasone-Salmererol 250-50 Inhaler INHALATION SCH (08:02)
[2017-06-03] MEDS: BusPIRone 15 mg Dividose Tablet PO SCH (08:02)
[2017-06-03] MEDS: Acyclovir 400 mg Tablet PO SCH (08:04)
[2017-06-03] MEDS: Albuterol-Ipratropium 3 mL Inhalation Solution NEB SCH ×2 (08:32→11:53)
[2017-06-03] MEDS ORDERED: BUME0.5T3 PO ×2 (10:51→10:54)
--- NOTE | 2017-06-03 10:56 | PCM.DIMED ---
Discharge Instructions Date of Service Jun 03, 2017 Dates of Hospitalization May 31, 2017 at 23:29 Medication Instructions Additional med instructions Note that you can take one 0.5 mg tablet of bumetanide in addition to your am or pm dose if you gained> 3 kg. Do not exceed one tablet of 0.5 mg per day. Activity Discharge Activity: No restrictions Call your provider Call your provider for: Fever or Chills, Shortness of breath, Bleeding, Chest pain, Vomitting, Excessive diarrhea, Weakness (unilateral), Other Patient Instructions Follow-up plan Please f/u with your burial needs salesperson in 2 weeks. Please f/u with PCP in 2 weeks Karin Maki DO Jun 03, 2017 10:56
--- NOTE | 2017-06-03 11:55 | NUR ---
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
--- NOTE | 2017-06-03 12:41 | NUR ---
Social Work: Discharge / Multidisciplinary Rounds Data & Assessment: EMR reviewed. Patient is on day 3 of hospitalization for N STEMI per H&P. Patient was discussed in morning rounds. Patient has been deemed medically stable for discharge today per MD. No concerns were noted by staff or MD during rounds. Patient will return to [facility] where she currently resides. ROSA called [facility] to inform staff of patient's discharge today. ROSA spoke with patient's nurse Shelby who confirms that discharge paperwork has been received. Transportation to [facility] will be provided by family. Patient has no additional needs at this time. Plan: Patient will return to [facility] today.Transportation will be provided by family. Patient has no additional needs at this time. PHIL Arnett
--- NOTE | 2017-06-03 13:13 | NUR ---
Discharge Note Pt discharged, daughter here to transport home. IV catheter x 1 & telemetry box removed. Discharge instructions/medications discussed & understood by daughter/POA. Vitals stable, no c/o sob/pain, mentation @ baseline prior to transfer. Patient transported out via wheelchair by [employer]. All items gathered, nothing left behind. Daughter to make f/u appt's x 2 for the next couple weeks.
--- NOTE | 2017-06-03 23:32 | PCM.DC.MED ---
Discharge Summary Date of Service Jun 03, 2017 Dates of Hospitalization Date of Hospital Admission May 31, 2017 at 23:29 Date of Discharge: Jun 03, 2017 Providers: Admitting Physician: Deb Roy DO Primary Care Physician: Ronny Contreras MD Attending Physician: Karin Isabel DO Procedures XRay, CTs & MRIs PROCEDURE: X-RAY CHEST ONE VIEW, PORTABLE IMPRESSION: Cardiomegaly and mild CHF. Dictated by: Hugo Mclaughlin M.D. on 05/31/2017 at 20:24 ECG 12 Lead Paced rhythm: HR 62 Brief History Patient is a pleasant 81 y/o female with PMhx of CAD, COPD, pacemaker , Aortic Valve Replacement (currently on Elliquis), and renal insufficiency who presented from assisted living after three days of substernal chest discomfort. Pain is described as a solid sensation that feels "like something is stuck in her chest". Pain is intermittent and can last anywhere from a minute to 5-10 minutes. Patient reports multiple episodes that begin at rest and resolve spontaneously. She states that "I wish I was nauseous so I could throw up, because this seems like it could get rid of this feeling." Patient felt this sensation earlier in the afternoon around 1500 prior to coming to the ED called EMS. EMS gave patient one 325 ASA as well as Nitro x3, which relieved the symptoms. Patient denies any radiation of pain, palpitations, fevers, diaphoresis, headache, N/V/D, ABD pain, SOB, or urinary sxs. Patient had a pacemaker placed in Oct 2015 and Aortic Valve replacement in 2012. Patient's daughter is with patient and states she was seen at Urgent care yesterday for a lower extremity cellulitis that has been ongoing for the past week. Patient was started on PO Clindamycin 300mg and has only had 4 doses. Patient notes LE swelling and pain that is 3/10, and primarily on her LLE. In the ED patient received Nitropaste and remained asymptomatic. Troponin labs increased on repeat labs. Hospital Course Patient is a pleasant 81 y/o female with PMhx of CAD, COPD, pacemaker , Aortic Valve Replacement (currently on Elliquis), and renal insufficiency who presented from assisted living after three days of substernal chest discomfort. Pain is described as a solid sensation that feels "like something is stuck in her chest". - Acute chest pain present on admission, resolved - Patient presented with chest pain that resolved with Nitro and ASA, with elevated troponins - Trend troponin Q6 - Consult Cardiology, appreciate their recommendations. ED spoke with cardio prior to admission, will medically manage as pt is not strong candidate for cath due to renal function. Will hold on heparin anticoagulation and continue ASA management. - Start Metoprolol tartrate 25mg PO daily, adjust per cardiology recommendations - Consider Lisinopril 5mg PO daily, holding at this time due to current renal function. adjust per cardiology recommendations - Nitro PRN - Supplemental O2 if pt O2sat falls below <90% - Morphine 1mg IV PRN pain - Lipid panel his ordered and reviewed- no changes to statin at this time Elevated troponins, present on admission active -Troponin elevation: 0.026->0.039->0.029, secondary to heart failure as evidenced by the chest x-ray and patient's presentation. could be due to renal disease as well -Cardiology has seen the patient, they feel that her pacemaker should be paced biventricular, pacemaker is functioning appropriately Acute on chronic Chronic Systolic Heart Failure, present on admission -- Elevated troponin secondary to mild CHF as evidenced by her chest x-ray - Echo from 06/28/[address] Smith showed mild dilation in LV with EF 20-25% with moderate mitral regurgitation -- Cardiology is consulted, Dr. Warner has seen the patient -- Recommends treating the CHF with 0.5-1 mg Bumex IV, a second dose was given on 06/02, continue home Bumex -- Pacemaker is functioning as expected per cardiology -- Patient is asked to take daily PRN extra dose 0.5 mg bumex based on wt gain - Acute on Chronic Kidney Disease, POA, Active, Stable - Patient has h/o renal insufficiency, SCr on admission 2.54 with questionable baseline around 2.1 from November 2016 - Monitor I&O - Repeat CMP in AM - Avoid contrast until renal status can be determined with management of cardiac function - Cellulitis of bilateral LE, POA, Stable, Active -- Patient's lower extremities. Almost cleared, patient states that she had cellulitic [facility] - Patient was started on Clindamycin 300mg PO QID the day before admission, patient has only received 4 doses -- Switched to by mouth doxycycline to prevent c diff -History of COPD, Stable - Continue home regimen of Advair - Continue home regimen of Iprat-Albut - History of Dyslipidemia, Stable - Continue home dose of Simvastatin 10mg PO daily Patient is admitted under inpatient status expected length of stay greater than 2 midnights due to severity of presenting symptoms, risk of adverse events, and complexity of treatment plan. High Risk medication: Morphine Patient is DNR/DNI Pain Evaluation: Adequate Pain Control GI Prophylaxis: H2 deena VTE Prophylaxis: SCD VTE Mechanical Devices: Intermittant Pneumatic CD Resuscitation Status: DNR/DNI Exam Vital Signs (Last) Date Time Temp Pulse Resp B/P Pulse Ox O2 Delivery O2 Flow Rate FiO2 06/03/17 08:30 62 18 96 Room Air 06/03/17 07:59 106/57 06/03/17 05:34 36.5 Exam General: NAD HEENT: NCAT Heart: 2+ systolic murmur , RRR Lungs: b/l crackles, improving Ext: Neg for edema Neuro: No focal new changes Psych: No anxiety Test 05/31/17 19:22 05/31/17 21:15 05/31/17 22:16 06/01/17 05:00 Magnesium Level 2.4mg/dL (1.6-2.6) Urine Color Yellow (YELLOW) Urine Appearance Slightly cloudy Urine pH 5.0 (5.0-8.0) Urine Specific Yoder 1.010 (1.003-1.035) Urine Protein Negativemg/dL (NEG,TRACE) Urine Glucose (UA) Negativemg/dL (NEGATIVE) Urine Ketones Negativemg/dL (NEGATIVE) Urine Occult Blood Negative (NEGATIVE) Urine Nitrite Negative (NEGATIVE) Urine Bilirubin Negative (NEGATIVE) Urine Urobilinogen Normalmg/dL (NORMAL) Urine Leukocyte Esterase Small (NEGATIVE) Urine RBC 0-2/hpf (0-2) Urine WBC 6-10/hpf (0-5) Urine Epithelial Cells Many/hpf (NONE-MOD) Urine Crystals Oxalic acid crystals (NONE Urine Bacteria Moderate/hpf (NONE-FEW) Urine Hyaline Casts Occasional/lpf (NONE) Urine Granular Casts None seen (NONE SEEN) Urine Waxy Casts None seen (NONE SEEN) Urine Red Blood Cell Casts None seen (NONE SEEN) Urine White Blood Cell Casts None seen (NONE SEEN) Urine Mucus None seen (None Seen) Urine Trichomonas None seen (NONE SEEN) Urine Yeast None (NONE SEEN) Urinalysis Comment None Urine Culture Reflexed Indicated Hold Urine Received (Received) White Blood Count 6.7th/mm3 (3.8-10.1) Red Blood Count 2.94mil/mm3 (3.90-5.20) Hemoglobin 9.3g/dL (12.0-15.6) Hematocrit 29.1% (35.0-46.0) Mean Corpuscular Volume 99.0fL (81-100) Mean Corpuscular Hemoglobin 31.6pg (27.0-35.0) Mean Corpuscular Hemoglobin Concent 32.0% (32.0-37.0) Red Cell Distribution Width 16.4% (12.3-15.4) Platelet Count 141bil/L (150-400) Neutrophils (%) (Auto) 73.2% (40-74) Lymphocytes (%) (Auto) 10.9% (14-46) Monocytes (%) (Auto) 14.1% (4-12) Eosinophils (%) (Auto) 1.6% (0-5) Basophils (%) (Auto) 0.1% (0-3) Troponin T 0.029ug/L (0.0-0.011) Pro-B-Type Natriuretic Peptide 52093ty/mL (0-738) Test 06/02/17 06:20 06/03/17 08:25 Total Bilirubin 0.5mg/dL (0.0-1.2) Aspartate Amino Transf (AST/SGOT) 20U/L (0-50) Alanine Aminotransferase (ALT/SGPT) 16U/L (0-32) Alkaline Phosphatase 96U/L (25-165) Total Protein 6.3g/dL (6.4-8.4) Albumin 3.8g/dL (3.4-5.0) Triglycerides Level 63mg/dL (0-149) Cholesterol Level 107mg/dL (100-199) LDL Cholesterol, Calculated 29.400mg/dL (0-99) VLDL Cholesterol 12.600mg/dL HDL Cholesterol 65mg/dL (>39) Cholesterol/HDL Ratio 1.65 (0.0-4.4) Sodium Level 140mEq/L (134-144) Potassium Level 3.7mEq/L (3.5-5.2) Chloride Level 100mEq/L (97-108) Carbon Dioxide Level 24mmol/L (18-29) Blood Urea Nitrogen 45mg/dL (8-27) Creatinine 2.13mg/dL (0.57-1.00) Estimat Glomerular Filtration Rate 32mL/min (>59) Glucose Level 82mg/dL (60-99) Calcium Level 9.3mg/dL (8.5-10.1) Microbiology Results Urine Culture pending Discharge Medications Discharge Medications Amiodarone (Amiodarone) 200 Mg Tablet 200 MG PO DAILY (Reported) Apixaban (Eliquis) 5 Mg Tablet 2.5 MG PO BID Prescribed by: RHONDA LO MD Bumetanide (Bumetanide) 1 Mg Tablet 1 MG PO BIDWM (Reported) Bumetanide (Bumetanide) 0.5 Mg Tablet 0.5 MG PO DIRECTED Take one tablet if you gained >3 lb, may give with am or pm dose of her other bumetanide. Prescribed by: KARIN ISABEL DO Buspirone (Buspirone) 5 Mg Tablet 5 MG PO BID (Reported) Cholecalciferol (Vitamin D3) (Vitamin D3) 2,000 Unit Tablet 2,000 UNIT PO DAILY (Reported) Doxycycline Hyclate (Doxycycline Hyclate) 100 Mg Capsule 100 MG PO BID Prescribed by: KARIN ISABEL DO Ferrous Gluconate (Ferrous Gluconate) 324 Mg Tablet 324 MG PO BIDWM (Reported) Fluorometholone (Fluorometholone) 5 Ml Drops.susp 1 DROP RIGHT_EYE BID (Reported ) Fluticasone/Salmeterol (Advair 250-50 Diskus) 60 Puff/Inh Disk 1 PUFF IH BID ( Reported) Montelukast (Montelukast) 10 Mg Tablet 10 MG PO HS (Reported) Pantoprazole DR (Pantoprazole DR) 20 Mg Tablet.dr 20 MG PO DAILYAC Prescribed by: EMMA WAGNER MD Paroxetine (Paroxetine) 20 Mg Tablet 20 MG PO HS Prescribed by: EMMA WAGNER MD Potassium Chloride (Potassium Chloride) 20 Meq Tab.er.prt 20 MEQ PO DAILY ( Reported) TAKE WITH FOOD Ropinirole (Ropinirole) 0.25 Mg Tablet 0.25-0.5 MG PO QPM (Reported) Simvastatin (Simvastatin) 10 Mg Tablet 10 MG PO HS (Reported) Spironolactone (Spironolactone) 50 Mg Tablet 50 MG PO DAILY (Reported) Tiotropium [place] (Spiriva) 18 Mcg Cap.w.dev 2 PUFFS IH DAILY (Reported) Vit C/E/Zn/Coppr/Lutein/Zeaxan (Preservision Areds 2 Softgel) 1 Each Capsule 1 EACH PO BID (Reported) As needed Acetaminophen (Acetaminophen) 325 Mg Tablet 325 MG PO Q4H PRN PRN For Fever ( Reported) Aspirin (Aspirin Rectal) 600 Mg Supp 600 MG IA DAILY PRN PRN For Pain (Reported ) Carboxymethylcellulos/Glycerin (Refresh Optive Eye Drops) 15 Ml Drops 1 DROP BOTH_EYES Q2H PRN PRN DRY EYES (Reported) Hydrocodone-Acetaminophen 5-325 mg (Hydrocodone-Acetaminophen 5-325 mg) 1 Each Tablet 0.5-1 TABLET PO Q6H PRN PRN For Pain (Reported) Nitroglycerin SL (Nitrostat) 0.4 Mg Tab.subl 0.4 MG SL Q5MIN PRN PRN For Chest Pain (Reported) Polyethylene Glycol 3350 (Miralax) 17 Gm Powd.pack 17 GM PO DAILY PRN PRN For Constipation (Reported) Polyvinyl Alcohol/Povidone/Pf (Refresh Classic Eye Drops) 1 Each Droperette 1 EACH BOTH_EYES DAILY PRN PRN For Eye Irritation (Reported) Sennosides (Senna) 8.6 Mg Tablet 17.2 MG PO DAILY PRN PRN For Constipation ( Reported) diphenhydrAMINE HCl (Unisom Sleepmelts) 25 Mg Tab.rapdis 50 MG PO QID PRN PRN For Itching (Reported) Additional med instructions Note that you can take one 0.5 mg tablet of bumetanide in addition to your am or pm dose if you gained> 3 kg. Do not exceed one tablet of 0.5 mg per day. Followup Plan Follow-up plan Please f/u with your charrer in 2 weeks. Please f/u with PCP in 2 weeks Discharge Activity: No restrictions Karin Isabel DO Jun 03, 2017 11:02
== END 2017-06-03 12:23 | disposition home or self-care (01) | DRG 292 ==
LOC: SED 18:52 → EDBD 18:52 → MPC 23:29
PROVIDERS: ADMIT Internal Medicine; ATTEND Family Medicine
DX: I50.23 Acute on chronic systolic (congestive) heart failure (principal); L03.116 Cellulitis of left lower limb; I25.10 Atherosclerotic heart disease of native coronary artery without angina pectoris; I25.5 Ischemic cardiomyopathy; I44.7 Left bundle-branch block, unspecified; J44.9 Chronic obstructive pulmonary disease, unspecified; F41.8 Other specified anxiety disorders; M19.071 Primary osteoarthritis, right ankle and foot; E78.5 Hyperlipidemia, unspecified; E11.9 Type 2 diabetes mellitus without complications; G25.81 Restless legs syndrome; Z66 Do not resuscitate; Z79.82 Long term (current) use of aspirin; Z88.0 Allergy status to penicillin; Z95.2 Presence of prosthetic heart valve; Z79.01 Long term (current) use of anticoagulants; Z95.0 Presence of cardiac pacemaker